=== PATIENT | male | born 1940 | race Caucasian/White ===

== ENCOUNTER 2020-06-30 19:44 | Emergency (ER) | payer MEDICARE, OTHER, SELFPAY ==
[2020-06-30 19:48] VITALS: BP 166/97; PULSE 91; RESP 20; TEMP 36.1; O2SAT 99
--- NOTE | 2020-06-30 20:06 | ED.GENADULT ---
HPI - General Adult General Chief complaint: Urogenital-Male Stated complaint: urinary retention Time Seen by Provider: 06/30/20 19:56 History of Present Illness HPI narrative: Patient is a 79-year-old gentleman presents the emergency department with chief complaint of urinary retention. Patient states that since yesterday he has been unable to urinate and states that he feels as though his bladder is distended and feels as though he has not been able to urinate. The patient reports he had a prior episode like this in the past that required Ibarra catheter. Patient states he has a urologist at [facility]. Patient denies fever denies chills denies flank pain. Related Data Allergies Allergy/AdvReac Type Severity Reaction Status Date / Time No Known Allergies Allergy Verified 06/30/20 19:49 Review of Systems Review of Systems: Narrative: A 10 system review of systems was completed on the patient and is negative except for what is stated in the HPI. Nursing and ancillary documentation was reviewed. PMFSH Comments Prior history of urinary retention I have informed the surgical history is significant for pancreatic surgery Social history the patient denies illicit drug use Exam Narrative: Exam Narrative: GENERAL: Well-appearing, well-nourished, and in no acute distress. HEAD: Normocephalic, atraumatic. EYES: PERRLA and EOMI. ENT: Nares clear, no rhinorrhea or epistaxis. Mucous membranes moist. NECK: Supple. CHEST: Clear to auscultation. No respiratory distress. HEART: Regular rate and rhythm. No murmur heard. Normal peripheral pulses. ABDOMEN: Soft, suprapubic tenderness and distended bladder, nondistended, normal active bowel sounds. EXTREMITIES: Normal range of motion. No edema. SKIN: Warm, dry, no rash. NEURO: No focal deficits. Alert and oriented x3. PSYCH: Normal mood and affect. Course Vital Signs Vital signs: Vital Signs Temperature 36.1 C L 06/30/20 19:48 Pulse Rate 91 06/30/20 19:48 Respiratory Rate 20 06/30/20 19:48 Blood Pressure 166/97 H 06/30/20 19:48 Pulse Oximetry 99 06/30/20 19:48 Temperature 36.1 C L 06/30/20 19:48 Pulse Rate 84 06/30/20 21:25 Respiratory Rate 16 06/30/20 21:25 Blood Pressure 148/86 H 02/13/21 21:25 Pulse Oximetry 98 06/30/20 21:25 Medical Decision Making Vital Signs Vital Signs: Vital Signs Temperature 36.1 C L 06/30/20 19:48 Pulse Rate 91 06/30/20 19:48 Respiratory Rate 20 06/30/20 19:48 Blood Pressure 166/97 H 06/30/20 19:48 Pulse Oximetry 99 06/30/20 19:48 Temperature 36.1 C L 06/30/20 19:48 Pulse Rate 84 06/30/20 21:25 Respiratory Rate 16 06/30/20 21:25 Blood Pressure 148/86 H 06/30/20 21:25 Pulse Oximetry 98 06/30/20 21:25 Lab Data Labs: Lab Results 06/30/20 Range/Units 20:08 Urine Color Yellow (Yellow) Urine Appearance Clear (Clear) Urine pH 6.0 (5.0-9.0) Ur Specific [place] 1.018 (1.001-1.035) Urine Protein 1+ H (Negative) mg/dL Urine Glucose (UA) Negative (Negative) mg/dL Urine Ketones Negative (Negative) mg/dL Ur Blood (Man) Negative (Negative) Urine Nitrate Negative (Negative) Urine Bilirubin Negative (Negative) Urine Urobilinogen Negative (<2.0) mg/dL Leukocyte Esterase Rfl Negative (Negative) ORA/UL Urine RBC 6-10 H (0-2) /hpf Urine WBC 0-3 /hpf Urine Bacteria Trace /hpf Urine Mucus Rare /lpf Discharge Plan Discharge Clinical Impression: Acute urinary retention Patient Disposition: Home, Self-Care Condition: Stable Instructions: Antibiotic Form, Ibarra Catheter Placement and Care (ED), How to Change a Catheter Drainage Bag (DC) Additional Instructions: please follow up with your urologist as soon as possible. Follow-up/Referrals: Jose,Luis Kumar MD [Primary Care Provider] - Time of Disposition: 20:37
[2020-06-30 20:27] LABS: Add Urine Microscopic? YES; Appearance Urine Clear (Clear); Bacteria Urine Trace /hpf; Bilirubin Urine Negative (Negative); Blood Urine Negative (Negative); Color Urine Yellow (Yellow); Glucose Urine UA Negative (Negative); Ketones Urine Negative (Negative); Leukocyte Esterase Ur Negative LEU/UL (Negative); Mucus Urine Rare /lpf; Nitrate Urine Negative (Negative); Protein Urine 1+ mg/dL (Negative); Specific Grav Ur 1.018 (1.001-1.035); Urobilinogen Urine Negative mg/dL (<2.0); WBC Urine 0-3 /hpf
[2020-06-30 21:25] VITALS: BP 148/86; PULSE 84; RESP 16; O2SAT 98
[2020-06-30] MEDS: MAGNESIUM CITRATE 300 ML BTL PO (22:01)
--- NOTE | 2020-06-30 22:02 | PC.NURSE ---
catheter teaching done in room leg bag placed on the pt
== END 2020-06-30 22:02 | disposition home or self-care (01) ==
LOC: ANHED 20:46
PROVIDERS: Emergency Provider Emergency Medicine; PCP Internal Medicine
DX: R33.9 Retention of urine, unspecified (principal)
CPT/HCPCS: 51702; 81001; 99283; A9270

== ENCOUNTER 2023-02-05 11:19 | Inpatient (IN) | payer MEDICARE, OTHER, SELFPAY ==
[2023-02-05] VITALS (22 sets, daily range): BP systolic 111–137; BP diastolic 68–98; PULSE 60–67; RESP 12–20; TEMP 36.4–36.5; O2SAT 95–100
--- NOTE | ~2023-02-05 | CT_ITS ---
EXAMINATION: CT abdomen pelvis w con DATE: 02/05/2023 16:00 INDICATION: Constipation. Abnormal liver function tests. TECHNIQUE: Computed tomography (CT) of the abdomen and pelvis was performed with 100 mL Omnipaque-350 intravenous contrast. Automated exposure control and iterative reconstruction technique were employe d. The dose-length product was 1000.14 mGy-cm. COMPARISON: None FINDINGS: Coarse septal line thickening and peripheral honeycombing at the bilateral lung bases consistent with usual interstitial pneumonia pattern chronic interstitial lung disease. Heart size is normal. Athero sclerotic coronary artery calcifications and likely coronary stenting. No pericardial or pleural effu wilton. Multiple subcentimeter low-attenuation hepatic cysts. Gallbladder and bilateral adrenal glands are normal. Status post splenectomy and distal pancreas resection. Small region of cortical scarring at the upper pole the right kidney. There are few bilateral subcentimeter renal cysts. Bilateral nono bstructing nephrolithiasis with 2 stones measuring up to 2 mm at the lower pole of the left kidney an d 1 mm stone at the upper pole of the right kidney. Bowels including the appendix are normal. Bladder is normal. Calcifications within the enlarged prostate which measures 4.5 x 3.5 cm. Tiny fat-contain ing umbilical hernia and small fat-containing right-sided paraumbilical hernia. No free intraperitone al gas or fluid. No pathologically enlarged abdominal or pelvic lymphadenopathy. There is calcified a therosclerosis of the aorta and many of the other arteries. Incidental retroaortic left renal vein. M ild thoracolumbar dextroscoliosis with severe spondylosis. Chronic appearing L2 compression fracture with 50% anterior vertebral body height loss. 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 IMPRESSION: 1. No acute intra-abdominal/pelvic process. 2. UIP pattern chronic interstitial lung disease at the bilateral lung bases. 3. Bilateral nonobstructing nephrolithiasis. 4. Prostatomegaly. 5. Tiny fat-containing umbilical and small fat-containing left paraumbilical hernias Reviewed, dictated and finalized at location A. IMPRESSION: 1. No acute intra-abdominal/pelvic process. 2. UIP pattern chronic interstitial lung disease at the bilateral lung bases. 3. Bilateral nonobstructing nephrolithiasis. 4. Prostatomegaly. 5. Tiny fat-containing umbilical and small fat-containing left paraumbilical he rnias
--- NOTE | ~2023-02-05 | XR_ITS ---
EXAMINATION: XR chest 2V DATE: 02/05/2023 14:17 INDICATION: Productive cough TECHNIQUE: AP and lateral views of the chest are obtained. COMPARISON: None available FINDINGS: There are patchy opacities of the lung bases. There appear to be subpleural reticular opaci ties. No pleural effusion or pneumothorax. The cardiomediastinal silhouette is normal. There is sever e thoracic spondylosis. Moderate osteoarthritis is noted in the shoulders. IMPRESSION: 1. Bibasilar airspace opacities which could reflect atelectasis versus pneumonia. 2. Possible chronic interstitial lung disease. Reviewed, dictated and finalized at location L. IMPRESSION: 1. Bibasilar airspace opacities which could reflect atelectasis versus pneumoni a. 2. Possible chronic interstitial lung disease.
--- NOTE | ~2023-02-05 | CT_ITS ---
EXAMINATION: CT brain wo con DATE: 02/05/2023 15:15 INDICATION: Confusion for 3 to 4 days. Disorientation. Weakness. TECHNIQUE: Computed tomography (CT) of the head was performed without intravenous contrast. The mA wa s adjusted according to patient size. Iterative reconstruction technique was employed. Exam dose: 60 5.33 mGy-cm total exam DLP. COMPARISON: None FINDINGS: Bilateral vertebral artery and basilar artery calcification and prominent bilateral carotid siphon internal carotid artery calcifications. There is nonspecific diminished attenuation of the cerebral white matter, likely due to chronic small vessel ischemic changes. There is chronic encephalomalacia in the right and to a lesser extent left lower frontal lobes which may be due to prior infarct, hematoma or injury. There is a small area of right occipital encephalomalacia which may be due to prior infarct, hematoma or injury. There is moderately prominent central and cortical cerebral and cerebellar atrophy. No intracranial mass lesion or hemorrhage. No midline shift or mass effect. No subdural or epidural h ematoma is detected. The included mastoid air cells and paranasal sinuses are well-developed and aerated. No fracture or bone destruction of the cranial vault. IMPRESSION: Bilateral frontal and right occipital chronic encephalomalacia, possibly due to prior in farcts or hematoma or trauma Cerebral atherosclerosis and chronic small vessel ischemic changes of the cerebral white matter Central and cortical cerebral and cerebellar atrophy Reviewed, dictated and finalized at [facility]. Reviewed, dictated and finalized at location A. IMPRESSION: Bilateral frontal and right occipital chronic encephalomalacia, po ssibly due to prior infarcts or hematoma or trauma Cerebral atherosclerosis and chronic small vessel ischemic changes of the cereb ral white matter Central and cortical cerebral and cerebellar atrophy
[2023-02-05 14:13] LABS: Basophils Absolute Auto 0.1 K/mm3 (0.0-0.1); Basophils Percent Auto 0.6 % (0.2-1.2); Eosinophils Absolute Auto 0.3 K/mm3 (0-0.3); Eosinophils Percent Auto 2.8 % (0-4.4); Hematocrit 37.3 % (42.0-52.0); Hemoglobin 12.8 g/dL (14.0-18.0); Immature Granulocyte Absolute 0.15 K/mm3 (0.00-0.031); Immature Granulocyte Percent A 1.6 % (0-0.5); Lymphocytes Absolute Auto 0.92 K/mm3 (0.9-3.2); Lymphocytes Percent Auto 9.8 % (18.3-44.2); Mean Corpuscular HGB Conc 34.3 g/dl (32-36); Mean Corpuscular Hemoglobin 32.7 pg (26-34); Mean Corpuscular Volume 95.2 fl (80-100); Mean Platelet Volume 9.8 fl (7.4-10.4); Monocytes Absolute Auto 1.1 K/mm3 (0.1-0.6); Monocytes Percent Auto 11.2 % (2.6-8.5); Platelet Count Result 292 k/mm3 (150-375); Red Blood Count 3.92 M/mm3 (4.6-6.20); Red Cell Distribution Width 15.3 % (11.5-14.5); White Blood Count 9.4 K/mm3 (4.5-10.0)
[2023-02-05 14:18] LABS: Appearance Urine Turbid (Clear); Bacteria Urine None Seen /hpf; Bilirubin Urine Negative (Negative); Blood Urine Negative (Negative); Color Urine Yellow (Yellow); Glucose Urine UA Negative (Negative); Ketones Urine Negative (Negative); Leukocyte Esterase Ur Trace LEU/UL (Negative); Nitrate Urine Negative (Negative); Non Pathogenic Casts 0-2; Protein Urine Negative (Negative); RBC Urine 0-2 /hpf (0-2); Specific Grav Ur 1.017 (1.001-1.035); Squamous Epithelial Cell Urine None seen /hpf (Few); Urobilinogen Urine 0.2 mg/dL (<2.0); WBC Urine 0-5 /hpf; pH Urine 7.5 (5.0-9.0)
[2023-02-05 14:19] LABS: Add Urine Microscopic? YES
[2023-02-05 14:27] LABS: Alanine Aminotransferase 113 U/L (6-50); Albumin Level 3.3 g/dL (3.5-5.1); Alkaline Phosphatase 134 U/L (38-126); Anion Gap 3 mmol/L (8-16); Aspartate Amino Transferase 81 U/L (17-59); Bilirubin,Total 0.8 mg/dL (0.2-1.3); Blood Urea Nitrogen 26 mg/dL (9-20); Carbon Dioxide 32 mmol/L (22-30); Chloride 88 mmol/L (98-107); Estimated CRCL calculation 55 ml/min; Estimated Glomerular Filt Rate > 60; Glucose 105 mg/dL (65-110); Potassium 3.7 mmol/L (3.4-5.0); Sodium 123 mmol/L (137-145)
--- NOTE | 2023-02-05 14:51 | ECG_ITS ---
Measurements Intervals [place] Rate: 62 P: DE: 0 QRS: -38 QRSD: 115 T: -3 QT: 429 QTc: 437 Interpretive Statements SINUS RHYTHM WITH FIRST DEGREE AV BLOCK LEFT AXIS DEVIATION INTRAVENTRICULAR CONDUCTION DELAY BORDERLINE R WAVE PROGRESSION, ANTERIOR LEADS BORDERLINE T WAVE ABNORMALITY- ANT/INF LEADS BORDERLINE ECG NO PREVIOUS ECG AVAILABLE FOR COMPARISON Electronically Signed On 02-05-2023 15:08:07 CDT by Reymundo Rocha D.O.
[2023-02-05 14:54] LABS: Influenza A QL RT-PCR Negative (Negative); Influenza B QL RT-PCR Negative (Negative); SARS-CoV-2 RNA PCR Negative (Negative)
[2023-02-05] MEDS: SODIUM CHLORIDE 0.9% IV 1,000 ML 999 ML IV CONT ×2 (15:17→17:17)
--- NOTE | 2023-02-05 15:53 | ED.GENADULT ---
HPI - General Adult General Chief complaint: Unspecified <Johanny Taylor PA-C - Last Filed: 02/05/23 16:57> Stated complaint: cough, forgetful <Johanny Taylor PA-C - Last Filed: 02/05/23 16:57> Time Seen by Provider: 02/05/23 13:39 <CAROLE Lackey Last Filed: 02/05/23 16:57> Source: patient and family <CAROLE Lackey Last Filed: 02/05/23 16:57> Mode of arrival: ambulatory <CAROLE Lackey Last Filed: 02/05/23 16:57> Limitations: no limitations <CAROLE Lackey Last Filed: 02/05/23 16:57> History of Present Illness HPI narrative: Patient is an 82-year-old female who presents to the ED with multiple complaints. Patient's at bedside assisted in providing information. She reports patient has been increasingly confused and forgetful over the last few days. She notes he forgot his email address which is not normal for him. Patient states he has felt weak and fatigued. He has had nausea with dry heaving with a decreased appetite. He has also had a productive cough over the last couple of days. He contacted his primary care doctor and was told to come to the ED to rule out COVID or a UTI. Patient also reports having chronic constipation. Last bowel movement 4 days ago. He denies any abdominal pain, fevers, shortness of breath, chest pain, focal weakness, slurred speech, numbness, dizziness, lightheadedness, dysuria, hematuria. <CAROLE Lackey Last Filed: 02/05/23 16:57> Related Data Home medications: Home Medications Medication Instructions Recorded Confirmed apixaban 5 mg tablet (Eliquis) 5 mg PO BID 07/28/22 02/05/23 amiodarone 200 mg tablet 200 mg PO DAILY 02/05/23 02/05/23 carvedilol 12.5 mg tablet 12.5 mg PO BID 02/05/23 02/05/23 gabapentin 100 mg capsule 100 mg PO TID 02/05/23 02/05/23 losartan 25 mg tablet 25 mg PO DAILY 02/05/23 02/05/23 metformin 500 mg tablet 500 mg PO DAILY 02/05/23 02/05/23 metolazone 2.5 mg tablet 2.5 mg PO DAILY 02/05/23 02/05/23 omeprazole 40 mg capsule,delayed 40 mg PO DAILY PRN Acid Reflux 02/05/23 02/05/23 release tamsulosin 0.4 mg capsule 0.4 mg PO DAILY 02/05/23 02/05/23 <CAROLE Lackey Last Filed: 02/05/23 16:57> Allergies/adverse reactions: Allergies Allergy/AdvReac Type Severity Reaction Status Date / Time No Known Allergies Allergy Verified 09/08/22 08:00 <Johanny Taylor PA-C - Last Filed: 02/05/23 16:57> Review of Systems Review of Systems: CONSTITUTIONAL: Denies fever, chills, or sweats. CARDIOVASCULAR: Denies chest pain, palpitations, or edema. RESPIRATORY: See HPI. GASTROINTESTINAL: See HPI. GENITOURINARY: Denies dysuria or hematuria. SKIN: Denies rash or itching. MUSCULOSKELETAL: Denies back pain, joint pain, or myalgia. NEUROLOGIC: See HPI. <Johanny Taylor PA-C - Last Filed: 02/05/23 16:57> All systems reviewed & are unremarkable except as noted in HPI and below <Johanny Taylor PA-C - Last Filed: 02/05/23 16:57> [facility] Past Medical History Medical History: Medical History (Updated 02/07/23 @ 17:33 by Johana Zayas MD) Arthritis Atrial fibrillation HTN (hypertension) <CAROLE Lackey Last Filed: 02/05/23 16:57> Family History Family History: Family History Mother Diabetes mellitus Hypertension Heart disease <CAROLE Lackey Last Filed: 02/05/23 16:57> Social History Social History: Social History Smoking status: Never smoker Alcohol intake: never Substance use: never Lack of Transportation: No Lack of Food: Never True Current Housing: I Have Housing Concerned About Future Housing: No Difficulty Paying Gas/Electric Bills: No Difficulty Paying for Meds: No Currently Unemployed: YES Education: Trade/Vocational
--- NOTE | 2023-02-05 19:49 | ADMGEN ---
This patient, Carter Bain, was admitted to 2 Medical Room 259-01. Patient/family oriented to hospital policies and general routines including ID bracelet, bed and alarms, visiting hours, pain management, procedures, bathroom and other care routines, personal items, smoking policy, room service/diet, and visiting hours. Information on how to activate the Rapid Response Team has been discussed. Patient/Family are encouraged to report perceived risks to care and to ask questions if they do not understand what they are told or what they should do.
--- NOTE | 2023-02-05 23:19 | PM.IMHP ---
H&P: HPI History of Present Illness Date/Time: 02/05/23 23:19 Chief Complaint: Patient was brought to the ER for evaluation for increased confusion, forgetfulness and wet cough for last couple days. Narrative: Our patient is a pleasantly confused 82 years old white male who lives at home with his . She reports that the he is becoming more confused and forgetful and does not remember his e-mail, which is not normal for him. He also feels weak and tired. He has some nausea and dry heave with decreased appetite. He also has productive wet cough for the last couple of days. He contacted his PCP and was told to come to the ER for evaluation. Workup was done which showed finding consistent with the possible UTI and bronchitis. He has been started on IV hydration, antibiotics and being placed under observation status for close monitoring and medical management. Review of Systems Review of Systems: patient is pleasantly confused ROS unobtainable: Yes unobtainable due to mental status PMFSH Past Medical History Medical History Arthritis Atrial fibrillation HTN (hypertension) Family History Family History Mother Diabetes mellitus Hypertension Heart disease Social History Social History Smoking status: Never smoker Alcohol intake: never Substance use: never Lack of Transportation: No Lack of Food: Never True Current Housing: I Have Housing Concerned About Future Housing: No Difficulty Paying Gas/Electric Bills: No Difficulty Paying for Meds: No Currently Unemployed: YES Education: Trade/Vocational Certificate Difficulty w/ Childcare or Family Care: No Spiritual care concerns: No Meds Home Medications and Allergies Home Medications Medication Instructions Recorded Confirmed Type apixaban 5 mg tablet (Eliquis) 5 mg PO BID 07/28/22 02/05/23 History amiodarone 200 mg tablet 200 mg PO DAILY 02/05/23 02/05/23 History carvedilol 12.5 mg tablet 12.5 mg PO BID 02/05/23 02/05/23 History gabapentin 100 mg capsule 100 mg PO TID 02/05/23 02/05/23 History losartan 25 mg tablet 25 mg PO DAILY 02/05/23 02/05/23 History metformin 500 mg tablet 500 mg PO DAILY 02/05/23 02/05/23 History metolazone 2.5 mg tablet 2.5 mg PO DAILY 02/05/23 02/05/23 History omeprazole 40 mg capsule,delayed 40 mg PO DAILY PRN Acid Reflux 02/05/23 02/05/23 History release tamsulosin 0.4 mg capsule 0.4 mg PO DAILY 02/05/23 02/05/23 History Allergies Allergy/AdvReac Type Severity Reaction Status Date / Time No Known Allergies Allergy Verified 09/08/22 08:00 Vital Signs Vital Signs - 24 hr 02/05/23 11:26 02/05/23 13:35 02/05/23 15:21 Temperature 36.5 C Pulse Rate 61 64 63 Respiratory Rate 18 20 17 Blood Pressure 136/69 137/77 128/72 Pulse Oximetry 96 99 97 Oxygen Delivery Room Air 02/05/23 13:47 02/05/23 15:00 02/05/23 15:21 Temperature Pulse Rate 63 62 63 Respiratory Rate 20 17 20 Blood Pressure 125/72 128/72 Pulse Oximetry 98 97 96 Oxygen Delivery 02/05/23 15:31 02/05/23 15:45 02/05/23 16:30 Temperature Pulse Rate 65 64 62 Respiratory Rate 20 20 19 Blood Pressure 127/77 Pulse Oximetry 96 95 98 Oxygen Delivery 02/05/23 16:58 02/05/23 17:00 02/05/23 17:24 Temperature Pulse Rate 63 63 60 Respiratory Rate 18 16 19 Blood Pressure 128/68 Pulse Oximetry 99 100 98 Oxygen Delivery 02/05/23 17:25 02/05/23 17:45 02/05/23 17:47 Temperature Pulse Rate 61 62 65 Respiratory Rate 18 20 20 Blood Pressure 111/79 Pulse Oximetry 96 97 98 Oxygen Delivery 02/05/23 18:11 02/05/23 18:15 02/05/23 18:16 Temperature Pulse Rate 64 66 67 Respiratory Rate 18 18 19 Blood Pressure 115/98 H Pulse Oximetry 98 98 Oxygen Delivery 02/05/23 18:33 02/05/23 18:45 02/05/23 18:46 Temperature Pul
[2023-02-06] MEDS: SODIUM CHLORIDE 0.9% IV 1,000 ML 75 ML IV CONT ×2 (01:14→14:45)
[2023-02-06 05:14] VITALS: BP 119/74; PULSE 64; RESP 16; TEMP 36.5; O2SAT 96
[2023-02-06 05:18] VITALS: BMI 28.8
[2023-02-06 08:08] LABS: Basophils Absolute Auto 0.1 K/mm3 (0.0-0.1); Basophils Percent Auto 0.9 % (0.2-1.2); Eosinophils Absolute Auto 0.3 K/mm3 (0-0.3); Hematocrit 37.1 % (42.0-52.0); Hemoglobin 12.6 g/dL (14.0-18.0); Immature Granulocyte Absolute 0.13 K/mm3 (0.00-0.031); Immature Granulocyte Percent A 1.4 % (0-0.5); Lymphocytes Absolute Auto 0.93 K/mm3 (0.9-3.2); Lymphocytes Percent Auto 9.9 % (18.3-44.2); Mean Corpuscular Hemoglobin 32.1 pg (26-34); Mean Corpuscular Volume 94.6 fl (80-100); Mean Platelet Volume 9.3 fl (7.4-10.4); Monocytes Absolute Auto 1.1 K/mm3 (0.1-0.6); Monocytes Percent Auto 11.9 % (2.6-8.5); Neutrophils Absolute Auto 6.8 K/mm3 (1.3-6.7); Neutrophils Percent Auto 72.9 % (45.5-73.1); Platelet Count Result 293 k/mm3 (150-375); Red Blood Count 3.92 M/mm3 (4.6-6.20); Red Cell Distribution Width 14.9 % (11.5-14.5); White Blood Count 9.4 K/mm3 (4.5-10.0)
[2023-02-06 08:23] LABS: Magnesium 1.8 mg/dL (1.6-2.3)
[2023-02-06 08:25] LABS: Anion Gap 4 mmol/L (8-16); Blood Urea Nitrogen 15 mg/dL (9-20); Calcium 7.8 mg/dL (8.4-10.2); Carbon Dioxide 27 mmol/L (22-30); Chloride 94 mmol/L (98-107); Estimated CRCL calculation 69 ml/min; Estimated Glomerular Filt Rate > 60; Glucose 99 mg/dL (65-110); Potassium 3.7 mmol/L (3.4-5.0); Sodium 125 mmol/L (137-145)
[2023-02-06 08:32] VITALS: PULSE 66
[2023-02-06] MEDS: APIXABAN 5 MG TABLET PO ×2 (08:32→20:18)
[2023-02-06] MEDS: LOSARTAN POTASSIUM 25 MG TABLET PO (08:32)
[2023-02-06] MEDS: metFORMIN HCL 500 MG TABLET PO (08:32)
[2023-02-06] MEDS: TAMSULOSIN HCL 0.4 MG CAPSULE PO (08:32)
[2023-02-06] MEDS: GABAPENTIN 100 MG CAPSULE PO ×3 (08:32→16:06)
[2023-02-06] MEDS: AMIODARONE HCL 200 MG TABLET PO (08:32)
[2023-02-06] MEDS: carvediloL 12.5 MG TABLET PO ×2 (08:32→20:18)
[2023-02-06] MEDS: metOLazone 2.5 MG TABLET PO (08:38)
--- NOTE | 2023-02-06 11:08 | PM.IMPN ---
Progress Note: A&P Assessment and Plan (1) Acute hyponatremia: Code(s): E87.1 - Hypo-osmolality and hyponatremia Status: Acute (2) Weakness: Code(s): R53.1 - Weakness Status: Acute (3) Dehydration: Code(s): E86.0 - Dehydration Status: Acute (4) Atrial fibrillation: Code(s): I48.91 - Unspecified atrial fibrillation Status: Acute (5) HTN (hypertension): Code(s): I10 - Essential (primary) hypertension Status: Acute (6) Acute bacterial bronchitis: Code(s): J20.8 - Acute bronchitis due to other specified organisms; B96.89 - Other specified bacterial agents as the cause of diseases classified elsewhere Status: Acute (7) Vocal cord nodules: Code(s): J38.2 - Nodules of vocal cords Status: Acute (8) Laryngopharyngeal reflux: Code(s): K21.9 - Gastro-esophageal reflux disease without esophagitis Status: Acute (9) Confusion: Code(s): R41.0 - Disorientation, unspecified Status: Acute (10) Altered mental status: Code(s): R41.82 - Altered mental status, unspecified Status: Acute Plan Place patient under observation status in med surge Patient was worked up in the ER for his multiple complaints Head CT scan was done which showed chronic age-related changes and ruled out any intracranial hemorrhage/ infarction Chest x-ray was done which failed to show clear-cut evidence of pneumonia UA was done which shows findings with a possible mild UTI Urine cultures sent for culture Patient is likely having mild UTI and/or bronchitis causing his symptoms of confusion Rocephin 1 g IV ordered to cover for both Patient received aggressive IV hydration in the ER Continue with IV hydration on the floor Patient's sodium level was 123 which is borderline and will be monitored closely on the floor PT/OT evaluation ordered DC planning once patient is stable and approaches his baseline ? Patient seen and examined at bedside ? Collaborated with patient's nurse at the bedside in detail and addressed all concerns ? Labs, electrolytes, radiology, investigations and test results reviewed ? ED/Consult/Nursing/Ancilliary notes on the chart reviewed and appreciated ? Spoke with patient/family at the bedside and answered all the questions that they had Continue with home meds. Monitor patient closely while admitted. Patient needs close follow up with PCP/specialists as an outpatient to address chronic medical issues. Repeat labs in a.m. Electrolyte replacement as per protocol. Patient will be monitored very closely on the floor. Further recommendations as per the hospital course. Patient's medical management will be taken over by our hospitalist team in a.m. Subjective Date/time seen: 02/06/23 11:08 Interval history: No new complaints. No neuro deficits Exam Narrative: PHYSICAL EXAMINATION: Vital signs: Please see the chart General physical exam: patient is pleasantly confused, lying in bed, appears in no acute distress Head/eyes: Atraumatic, EOMI, PERRLA ENT: + dry mucous membranes, nasal passages clear Neck: Supple, full range of motion, trachea midline CVS: S1 + S2, regular rate and rhythm, no murmurs Respiratory: Bilaterally fair air entry in both lung doll, mild B/L crackles, symmetric chest expansion, no distress Abdomen: Soft, non-tender, bowel sounds +ve, no organomegaly Extremities: No clubbing, no cyanosis, no edema, no calf tenderness Musculoskeletal: Moves all, adequate range of motion, no muscle spasms Skin: Warm, dry, no jaundice, no cyanosis Neurological: unable to be obtained, patient is pleasantly confused Psychiatric: unable to evaluate Objective Data Vital Signs Vital Signs: Vital Signs - 24 hr 02/05/23 11:26 02/05/23 13:35 02/05/23 15:21 Temperature 97.7 F Pulse Rate 61 64 63 Respiratory Rate 18 20 17 Blood Pressure 136/69 137/77 128/72 Pulse Oximetry 96 99 97 Oxygen Delivery
[2023-02-06 14:00] VITALS: BP 98/60; PULSE 65; RESP 19; TEMP 36.5; O2SAT 97
[2023-02-06] MEDS: ONDANSETRON INJ 4 MG/2 ML VIAL IV PUSH (17:01)
[2023-02-06 20:18] VITALS: PULSE 64
[2023-02-06 20:22] VITALS: BP 117/69; PULSE 66; RESP 16; TEMP 36.6; O2SAT 94
[2023-02-06 20:58] LABS: Anion Gap 4 mmol/L (8-16); Blood Urea Nitrogen 17 mg/dL (9-20); Calcium 7.7 mg/dL (8.4-10.2); Carbon Dioxide 28 mmol/L (22-30); Chloride 90 mmol/L (98-107); Estimated CRCL calculation 45 ml/min; Estimated Glomerular Filt Rate > 60; Glucose 115 mg/dL (65-110); Potassium 3.6 mmol/L (3.4-5.0); Sodium 122 mmol/L (137-145)
[2023-02-07] MEDS: SODIUM CHLORIDE 0.9% IV 1,000 ML 75 ML IV CONT (04:06)
[2023-02-07 04:45] LABS: Basophils Absolute Auto 0.1 K/mm3 (0.0-0.1); Eosinophils Absolute Auto 0.4 K/mm3 (0-0.3); Eosinophils Percent Auto 3.6 % (0-4.4); Hematocrit 33.8 % (42.0-52.0); Hemoglobin 11.9 g/dL (14.0-18.0); Immature Granulocyte Percent A 1.9 % (0-0.5); Lymphocytes Absolute Auto 1.34 K/mm3 (0.9-3.2); Lymphocytes Percent Auto 12.8 % (18.3-44.2); Mean Corpuscular HGB Conc 35.2 g/dl (32-36); Mean Corpuscular Hemoglobin 32.6 pg (26-34); Mean Corpuscular Volume 92.6 fl (80-100); Mean Platelet Volume 9.6 fl (7.4-10.4); Monocytes Absolute Auto 1.4 K/mm3 (0.1-0.6); Neutrophils Absolute Auto 7.1 K/mm3 (1.3-6.7); Neutrophils Percent Auto 67.7 % (45.5-73.1); Platelet Count Result 261 k/mm3 (150-375); Red Blood Count 3.65 M/mm3 (4.6-6.20); Red Cell Distribution Width 14.7 % (11.5-14.5); White Blood Count 10.4 K/mm3 (4.5-10.0)
[2023-02-07 05:00] LABS: Anion Gap 0 mmol/L (8-16); Blood Urea Nitrogen 16 mg/dL (9-20); Calcium 7.6 mg/dL (8.4-10.2); Carbon Dioxide 29 mmol/L (22-30); Chloride 91 mmol/L (98-107); Estimated CRCL calculation 55 ml/min; Estimated Glomerular Filt Rate > 60; Glucose 100 mg/dL (65-110); Potassium 3.3 mmol/L (3.4-5.0); Sodium 120 mmol/L (137-145)
[2023-02-07 06:00] VITALS: BP 129/67; PULSE 64; RESP 16; TEMP 36.8; O2SAT 96
[2023-02-07] MEDS: APIXABAN 5 MG TABLET PO ×2 (07:59→20:28)
[2023-02-07 08:00] VITALS: PULSE 64
[2023-02-07] MEDS: metOLazone 2.5 MG TABLET PO (08:00)
[2023-02-07] MEDS: metFORMIN HCL 500 MG TABLET PO (08:00)
[2023-02-07] MEDS: carvediloL 12.5 MG TABLET PO ×2 (08:00→20:28)
[2023-02-07] MEDS: TAMSULOSIN HCL 0.4 MG CAPSULE PO (08:00)
[2023-02-07] MEDS: AMIODARONE HCL 200 MG TABLET PO (08:00)
[2023-02-07] MEDS: GABAPENTIN 100 MG CAPSULE PO ×3 (08:00→16:42)
[2023-02-07] MEDS: LOSARTAN POTASSIUM 25 MG TABLET PO (08:00)
[2023-02-07] MEDS: POTASSIUM CHLORIDE 20 MEQ ER TABLET 40 MEQ PO (09:30)
[2023-02-07 10:41] LABS: Sodium 119 mmol/L (137-145)
[2023-02-07 11:04] LABS: Creatinine Urine 58.2 mg/dL; Sodium Urine Random 175 meq/L; Total Protein Urine Random 15 mg/dL; Ur Ttl Prot Creatinine Ratio 0.26 mg/mg (0-0.20)
[2023-02-07 11:07] LABS: Urea Random Urine 417 MG/DL
[2023-02-07 11:08] LABS: Creatinine Urine 57.6 mg/dL
--- NOTE | 2023-02-07 11:16 | PM.IMPN ---
Progress Note: A&P Assessment and Plan (1) Acute hyponatremia: Code(s): E87.1 - Hypo-osmolality and hyponatremia Status: Acute Assessment and Plan: Continue IV fluids. Hyponatremic workup pending. Nephrology consult pending. No neurologic symptoms. (2) Weakness: Code(s): R53.1 - Weakness Status: Acute Assessment and Plan: Likely from 1. 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 Status: Acute (8) Laryngopharyngeal reflux: Code(s): K21.9 - Gastro-esophageal reflux disease without esophagitis Status: Acute (9) Confusion: Code(s): R41.0 - Disorientation, unspecified Status: Acute Assessment and Plan: Improved (10) Altered mental status: Code(s): R41.82 - Altered mental status, unspecified Status: Acute Assessment and Plan: Improved Subjective Date/time seen: 02/07/23 11:16 Interval history: No new complaints Exam Narrative: PHYSICAL EXAMINATION: Vital signs: Please see the chart General physical exam: patient is pleasantly confused, lying in bed, appears in no acute distress Head/eyes: Atraumatic, EOMI, PERRLA ENT: + dry mucous membranes, nasal passages clear Neck: Supple, full range of motion, trachea midline CVS: S1 + S2, regular rate and rhythm, no murmurs Respiratory: Bilaterally fair air entry in both lung doll, mild B/L crackles, symmetric chest expansion, no distress Abdomen: Soft, non-tender, bowel sounds +ve, no organomegaly Extremities: No clubbing, no cyanosis, no edema, no calf tenderness Musculoskeletal: Moves all, adequate range of motion, no muscle spasms Skin: Warm, dry, no jaundice, no cyanosis Neurological: unable to be obtained, patient is pleasantly confused Psychiatric: unable to evaluate Objective Data Vital Signs Vital Signs: Vital Signs - 24 hr 02/06/23 14:49 02/06/23 14:00 02/06/23 20:18 Temperature 97.7 F Pulse Rate 65 64 Respiratory Rate 19 Blood Pressure 98/60 L Pulse Oximetry 97 Oxygen Delivery Room Air 02/06/23 20:22 02/06/23 20:00 02/07/23 06:00 Temperature 97.8 F 98.2 F Pulse Rate 66 64 Respiratory Rate 16 16 Blood Pressure 117/69 129/67 Pulse Oximetry 94 96 Oxygen Delivery Room Air 02/07/23 08:00 02/07/23 08:00 02/07/23 08:00 Temperature Pulse Rate 64 64 Respiratory Rate Blood Pressure Pulse Oximetry Oxygen Delivery Room Air Intake/Output Intake/Output: Intake & Output 02/04/23 02/05/23 02/06/23 02/07/23 23:59 23:59 23:59 23:59 Intake Total 2000 2400 1500 Output Total 300 2050 1150 Balance 1700 350 350 Meds/Results Medications: Active Medications Generic Name Dose Route Start Last Admin Trade Name Freq PRN Reason Stop Dose Admin Acetaminophen 650 mg 02/06/23 06:18 Acetaminophen 325 Mg Tablet PO Q4H PRN Mild Pain (1-3) or Fever Al Hydrox/Mg Hydrox/Simethicone 30 ml 02/06/23 06:18 Mag Hydrox/Al Hydrox/Simeth 30 Ml Udc PO QID PRN Dyspepsia Amiodarone HCl 200 mg 02/06/23 08:00 02/07/23 08:00 Amiodarone Hcl 200 Mg Tablet PO 200 mg DAILY@0800 DIEGO Administration Apixaban 5 mg 02/06/23 09:00 02/07/23 07:59 Apixaban 5 Mg Tablet PO 5 mg Q12HR DIEGO Administration Carvedilol
--- NOTE | 2023-02-07 13:13 | PM.CNNEP ---
Assessment and Plan Assessment and plan (1) Hyponatremia: Code(s): E87.1 - Hypo-osmolality and hyponatremia Status: Acute Assessment and Plan: acuity versus chronicity not known assuming acute risk factors of low sodium: use of thiazide (metolazone) diuretics PPI use interstitial lung disease (as noted by imaging) history of BPH follow-up on urine testing Head CT and CXR results noted check TSH, cortisol, SPEP, and UPEP stop metolazone start fluid restriction consider 3% saline if sodium continues to drop follow repeat sodium levels (2) Altered mental status: Code(s): R41.82 - Altered mental status, unspecified Status: Acute Assessment and Plan: seems clinically better secondary to #1(?) follow mentation (3) Bronchitis: Code(s): J40 - Bronchitis, not specified as acute or chronic Status: Acute Assessment and Plan: presumed based on symptoms empirically on antibiotics (4) Weakness: Code(s): R53.1 - Weakness Status: Acute Assessment and Plan: also related to #1(?) follow symptoms PT/OT as tolerated (5) HTN (hypertension): Code(s): I10 - Essential (primary) hypertension Status: Chronic Assessment and Plan: reasonable control follow trend of hemodynamics I will continue to follow the patient with you while he remains hospitalized to make further recommendations as deemed necessary. Thank you for allowing me to participate in care of this patient. History of Present Illness Reason for Consult Consult date: 02/07/23 Reason for consult: hyponatremia Chief Complaint Chief complaint: acute hyponatremia,weakness,dehydration History of Present Illness Narrative: The patient is an 82-year-old male with a past medical history as outlined below who presented to [facility] Emergency room for altered mental status. The patient's has noted and the past several days that he has become increasingly more confused and forgetful. for instance, he has been unable to remember his e-mail address and passed word which is not normal for him. Furthermore, he has had increasing issues and problems with weakness and fatigue in association with mild nausea, dry heaves, and poor oral intake. She also has noted that he has had a productive wet cough for last few days as well. Given this change in his baseline status, they contacted his primary care physician who instructed them to come to the ER for further evaluation for fear of a possible acute infection (COVID, bronchitis, UTI...etc) causing his symptoms. Workup and evaluation emergency room demonstrated the patient to be hemodynamically stable and in no acute distress. Routine blood tests were significant for hyponatremia by his chemistry but normal renal function and electrolytes. His CBC was unremarkable but his UA was somewhat suggestive of a possible urinary tract infection. His chest x-ray did not show any overt pneumonia so the suspicion with regard to his productive cough may be possible bronchitis. Given his laboratory abnormalities and constellation of symptoms that led to his presentation to the emergency room, he was started on IV fluids, antibiotics after appropriate cultures were obtained, and he was subsequent admitted to the hospital for further evaluation and therapy. Since admission, it would seem that his mentation has improved to some degree but his hyponatremia, which initially improved with IV fluids, has now started to deteriorate/worsen. Renal consultation was requested due to his hyponatremia. Unfortunately, I am unclear if his hyponatremia is acute, acute on chronic, or chronic but from my discussion with the patient, he does not recall ever being told that he had any issues or problems with hyponatremia at baseline (hence, the presumption is this is acute). With regard to risk factors for hyponatremia, he is on t
[2023-02-07 13:35] VITALS: BP 94/54; PULSE 68; RESP 16; TEMP 36.7; O2SAT 95
[2023-02-07 15:28] LABS: Sodium 119 mmol/L (137-145)
[2023-02-07] MEDS: SODIUM CHLORIDE 3% 255 ML 85 ML IV CONT (16:42)
[2023-02-07 20:00] VITALS: PULSE 100; RESP 16; O2SAT 93
[2023-02-07 21:46] LABS: Sodium 120 mmol/L (137-145)
[2023-02-07 22:00] VITALS: BP 98/65; PULSE 100; RESP 16; TEMP 36.9; O2SAT 93
[2023-02-08 05:42] VITALS: BP 116/75; PULSE 65; RESP 16; TEMP 36.5; O2SAT 96
[2023-02-08 05:53] LABS: Basophils Absolute Auto 0.1 K/mm3 (0.0-0.1); Basophils Percent Auto 0.7 % (0.2-1.2); Eosinophils Absolute Auto 0.4 K/mm3 (0-0.3); Eosinophils Percent Auto 3.5 % (0-4.4); Hematocrit 37.8 % (42.0-52.0); Immature Granulocyte Absolute 0.23 K/mm3 (0.00-0.031); Immature Granulocyte Percent A 2.2 % (0-0.5); Lymphocytes Absolute Auto 1.34 K/mm3 (0.9-3.2); Lymphocytes Percent Auto 13.1 % (18.3-44.2); Mean Corpuscular HGB Conc 34.4 g/dl (32-36); Mean Corpuscular Hemoglobin 32.3 pg (26-34); Mean Platelet Volume 9.4 fl (7.4-10.4); Monocytes Absolute Auto 1.1 K/mm3 (0.1-0.6); Monocytes Percent Auto 10.7 % (2.6-8.5); Neutrophils Absolute Auto 7.1 K/mm3 (1.3-6.7); Neutrophils Percent Auto 69.8 % (45.5-73.1); Platelet Count Result 281 k/mm3 (150-375); Red Blood Count 4.02 M/mm3 (4.6-6.20); Red Cell Distribution Width 14.6 % (11.5-14.5); White Blood Count 10.2 K/mm3 (4.5-10.0)
[2023-02-08 06:07] LABS: Alanine Aminotransferase 127 U/L (6-50); Alkaline Phosphatase 105 U/L (38-126); Anion Gap 1 mmol/L (8-16); Aspartate Amino Transferase 82 U/L (17-59); Bilirubin,Total 0.9 mg/dL (0.2-1.3); Blood Urea Nitrogen 15 mg/dL (9-20); Calcium 7.8 mg/dL (8.4-10.2); Carbon Dioxide 31 mmol/L (22-30); Chloride 88 mmol/L (98-107); Estimated CRCL calculation 55 ml/min; Estimated Glomerular Filt Rate > 60; Glucose 99 mg/dL (65-110); Potassium 3.9 mmol/L (3.4-5.0); Sodium 120 mmol/L (137-145)
[2023-02-08 06:33] LABS: Cortisol Random 8.53 ug/dL
[2023-02-08 08:29] VITALS: PULSE 68
[2023-02-08] MEDS: AMIODARONE HCL 200 MG TABLET PO (08:29)
[2023-02-08] MEDS: metFORMIN HCL 500 MG TABLET PO (08:29)
[2023-02-08] MEDS: GABAPENTIN 100 MG CAPSULE PO ×3 (08:29→16:15)
[2023-02-08] MEDS: TAMSULOSIN HCL 0.4 MG CAPSULE PO (08:29)
[2023-02-08 08:30] VITALS: PULSE 68
[2023-02-08] MEDS: LOSARTAN POTASSIUM 25 MG TABLET PO (08:30)
[2023-02-08] MEDS: carvediloL 12.5 MG TABLET PO ×2 (08:30→20:19)
[2023-02-08] MEDS: APIXABAN 5 MG TABLET PO ×2 (08:30→20:19)
--- NOTE | 2023-02-08 11:37 | PM.IMPN ---
Progress Note: A&P Assessment and Plan (1) Acute hyponatremia: Code(s): E87.1 - Hypo-osmolality and hyponatremia Status: Acute Assessment and Plan: Hyponatremic workup pending. Nephrology consult pending. No neurologic symptoms. (2) Weakness: Code(s): R53.1 - Weakness Status: Acute Assessment and Plan: Likely from 1. 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 - Nodules of vocal cords Status: Acute (8) Laryngopharyngeal reflux: Code(s): K21.9 - Gastro-esophageal reflux disease without esophagitis Status: Acute (9) Confusion: Code(s): R41.0 - Disorientation, unspecified Status: Acute Assessment and Plan: Improved (10) Altered mental status: Code(s): R41.82 - Altered mental status, unspecified Status: Acute Assessment and Plan: Improved Subjective Date/time seen: 02/08/23 11:37 Interval history: No complaints Exam Narrative: PHYSICAL EXAMINATION: Vital signs: Please see the chart General physical exam: patient is pleasantly confused, lying in bed, appears in no acute distress Head/eyes: Atraumatic, EOMI, PERRLA ENT: + dry mucous membranes, nasal passages clear Neck: Supple, full range of motion, trachea midline CVS: S1 + S2, regular rate and rhythm, no murmurs Respiratory: Bilaterally fair air entry in both lung doll, mild B/L crackles, symmetric chest expansion, no distress Abdomen: Soft, non-tender, bowel sounds +ve, no organomegaly Extremities: No clubbing, no cyanosis, no edema, no calf tenderness Musculoskeletal: Moves all, adequate range of motion, no muscle spasms Skin: Warm, dry, no jaundice, no cyanosis Neurological: unable to be obtained, patient is pleasantly confused Psychiatric: unable to evaluate Objective Data Vital Signs Vital Signs: Vital Signs - 24 hr 02/07/23 13:35 02/07/23 15:29 02/07/23 22:00 Temperature 98.1 F 98.4 F Pulse Rate 68 100 Respiratory Rate 16 16 Blood Pressure 94/54 L 98/65 L Pulse Oximetry 95 93 Oxygen Delivery Room Air 02/07/23 20:00 02/08/23 05:42 02/08/23 08:29 Temperature 97.7 F Pulse Rate 100 65 68 Respiratory Rate 16 16 Blood Pressure 116/75 Pulse Oximetry 93 96 Oxygen Delivery Room Air 02/08/23 08:30 02/08/23 08:00 Temperature Pulse Rate 68 Respiratory Rate Blood Pressure Pulse Oximetry Oxygen Delivery Room Air Intake/Output Intake/Output: Intake & Output 02/05/23 02/06/23 02/07/23 02/08/23 23:59 23:59 23:59 23:59 Intake Total 1999 2400 2090 780 Output Total 300 0 2125 1200 Balance 1700 350 -35 -420 Meds/Results Medications: Active Medications Generic Name Dose Route Start Last Admin Trade Name Freq PRN Reason Stop Dose Admin Acetaminophen 650 mg 02/06/23 06:18 Acetaminophen 325 Mg Tablet PO Q4H PRN Mild Pain (1-3) or Fever Al Hydrox/Mg Hydrox/Simethicone 30 ml 02/06/23 06:18 Mag Hydrox/Al Hydrox/Simeth 30 Ml Udc PO QID PRN Dyspepsia Amiodarone HCl 200 mg 02/06/23 08:00 02/08/23 08:29 Amiodarone Hcl 200 Mg Tablet PO 200 mg DAILY@0800 DIEGO Administration Apixaban 5 mg 02/06/23 09:00 02/08/23 08:30 Apixaban 5 Mg Tablet PO 5 mg Q12HR DIEGO Administration Carvedilol 12.5 mg 02/06/23 09:00
[2023-02-08] MEDS: COSYNTROPIN 0.25 MG/ML VIAL IV PUSH (12:00)
[2023-02-08 12:54] LABS: Sodium 120 mmol/L (137-145)
--- NOTE | 2023-02-08 12:55 | PM.PNNEP ---
Progress Note: A&P Assessment and Plan (1) Hyponatremia: Code(s): E87.1 - Hypo-osmolality and hyponatremia Status: Acute Assessment and Plan: acuity versus chronicity not known assuming acute will try to obtain old records from PCP's office risk factors of low sodium: use of thiazide (metolazone) diuretics PPI use interstitial lung disease (as noted by imaging) history of BPH evaluation to date noted: Head CT and CXR results noted TSH okay cortisol slightly low - check stim test SPEP/UPEP pending urine electrolytes are non-prerenal stopped metolazone on fluid restriction s/p 3% saline with minimal improvement started on salt tabs today -- consider adding low dose lasix follow repeat sodium levels (2) Altered mental status: Code(s): R41.82 - Altered mental status, unspecified Status: Acute Assessment and Plan: seems clinically better secondary to #1(?) follow mentation (3) Bronchitis: Code(s): J40 - Bronchitis, not specified as acute or chronic Status: Acute Assessment and Plan: presumed based on symptoms empirically on antibiotics (4) Weakness: Code(s): R53.1 - Weakness Status: Acute Assessment and Plan: also related to #1(?) follow symptoms PT/OT as tolerated (5) HTN (hypertension): Code(s): I10 - Essential (primary) hypertension Status: Chronic Assessment and Plan: reasonable control follow trend of hemodynamics Will continue to follow. Subjective Date/time seen: 02/08/23 12:55 Interval history: Follow up for acute hyponatremia (presumed). Sodium relatively stable but with no significant improvement despite fluid restriction and administration of 3% saline yesterday; started on salt tablets today; mentation seems stable if not improving; no apparent distress noted. Exam Narrative: General: elderly but WD/WN mal;ein NAD Heart: normal S1 and S2; no rub Lungs: clear to auscultation Abdomen: soft, nontender, nondistended, positive bowel sounds Extremities: no cyanosis or clubbing; no edema Skin: warm and dry Objective Data Vital Signs Vital Signs: Vital Signs Temp Pulse Resp BP Pulse Ox O2 Del Method 02/08/23 12:00 97.8 F 65 16 150/86 H 96 02/08/23 08:00 Room Air 02/08/23 08:30 68 02/08/23 08:29 68 02/08/23 05:42 97.7 F 65 16 116/75 96 02/07/23 20:00 100 16 93 Room Air 02/07/23 22:00 98.4 F 100 16 98/65 L 93 02/07/23 15:29 Room Air Intake/Output Intake/Output: Intake & Output 02/05/23 02/06/23 02/07/23 02/08/23 23:59 23:59 23:59 23:59 Intake Total 19990 0 1020 Output Total 300 0 2125 1200 Balance 1700 350 -35 -180 Meds/Results Medications: Active Medications Generic Name Dose Route Start Last Admin Trade Name Freq PRN Reason Stop Dose Admin Acetaminophen 650 mg 02/06/23 06:18 Acetaminophen 325 Mg Tablet PO Q4H PRN Mild Pain (1-3) or Fever Al Hydrox/Mg Hydrox/Simethicone 30 ml 02/06/23 06:18 Mag Hydrox/Al Hydrox/Simeth 30 Ml Udc PO QID PRN Dyspepsia Amiodarone HCl 200 mg 02/06/23 08:00 02/08/23 08:29 Amiodarone Hcl 200 Mg Tablet PO 200 mg DAILY@0800 DIEGO Administration Apixaban 5 mg 02/06/23 09:00 02/08/23 08:30 Apixaban 5 Mg Tablet PO 5 mg Q12HR DIEGO Administration Carvedilol 12.5 mg 02/06/23 09:00 02/08/23 08:30 Carvedilol 12.5 Mg Tablet PO 12.5 mg Q12HR DIEGO Administration Gabapentin 100 mg 02/06/23 09:00 02/08/23 12:04 Gabapentin 100 Mg Capsule PO 100 mg TID DIEGO Administration Ceftriaxone Sodium 1 gm in 50 mls @ 100 mls/hr 02/06/23 06:00 02/08/23 06:26 Rocephin 1 Gm/Ns 50 Ml IVPB 100 mls/hr Q24H DIEGO Administration Losartan Potassium 25 mg 02/06/23 09:00 02/08/23 08:30 Losartan Potassium 25 Mg Tablet PO 25 mg DAILY DIEGO Administration
--- NOTE | 2023-02-08 12:55 | P.PNNP_ITS ---
Progress Note: A&P Assessment and Plan (1) Hyponatremia: Code(s): E87.1 - Hypo-osmolality and hyponatremia Status: Acute Assessment and Plan: * acuity versus chronicity not known * assuming acute * will try to obtain old records from PCP's office * risk factors of low sodium: * use of thiazide (metolazone) diuretics * PPI use * interstitial lung disease (as noted by imaging) * history of BPH * evaluation to date noted: * Head CT and CXR results noted * TSH okay * cortisol slightly low - check stim test * SPEP/UPEP pending * urine electrolytes are non-prerenal * stopped metolazone * on fluid restriction * s/p 3% saline with minimal improvement * started on salt tabs today -- consider adding low dose lasix * follow repeat sodium levels (2) Altered mental status: Code(s): R41.82 - Altered mental status, unspecified Status: Acute Assessment and Plan: * seems clinically better * secondary to #1(?) * follow mentation (3) Bronchitis: Code(s): J40 - Bronchitis, not specified as acute or chronic Status: Acute Assessment and Plan: * presumed based on symptoms * empirically on antibiotics (4) Weakness: Code(s): R53.1 - Weakness Status: Acute Assessment and Plan: * also related to #1(?) * follow symptoms * PT/OT as tolerated (5) HTN (hypertension): Code(s): I10 - Essential (primary) hypertension Status: Chronic Assessment and Plan: * reasonable control * follow trend of hemodynamics Will continue to follow. Subjective Date/time seen: 02/08/23 12:55 Interval history: Follow up for acute hyponatremia (presumed). Sodium relatively stable but with no significant improvement despite fluid restriction and administration of 3% saline yesterday; started on salt tablets today; mentation seems stable if not improving; no apparent distress noted. Exam Narrative: General: elderly but WD/WN mal;ein NAD Heart: normal S1 and S2; no rub Lungs: clear to auscultation Abdomen: soft, nontender, nondistended, positive bowel sounds Extremities: no cyanosis or clubbing; no edema Skin: warm and dry Objective Data Vital Signs Vital Signs: Vital Signs Temp Pulse Resp BP Pulse Ox O2 Del Method 02/08/23 12:00 97.8 F 65 16 150/86 H 96 02/08/23 08:00 Room Air 02/08/23 08:30 68 02/08/23 08:29 68 02/08/23 05:42 97.7 F 65 16 116/75 96 02/07/23 20:00 100 16 93 Room Air 02/07/23 22:00 98.4 F 100 16 98/65 L 93 02/07/23 15:29 Room Air Intake/Output Intake/Output: Intake & Output 02/05/23 02/06/23 02/07/23 02/08/23 23:59 23:59 23:59 23:59 Intake Total 1999 2400 2090 1020 Output Total 300 0 2125 1200 Balance 1700 350 -35 -180 Meds/Results Medications: Active Medications Generic Name Dose Route Start Last Admin Trade Name Freq PRN Reason Stop Dose Admin Acetaminophen 650 mg 02/06/23 06:18 Acetaminophen 325 Mg Tablet PO Q4H PRN
[2023-02-08] MEDS: SODIUM CHLORIDE 1 GM TABLET PO ×3 (13:00→20:19)
[2023-02-08 14:00] VITALS: BP 150/86; PULSE 65; RESP 16; TEMP 36.6; O2SAT 96
[2023-02-08 19:20] LABS: Sodium 119 mmol/L (137-145)
[2023-02-08 20:00] VITALS: PULSE 65; RESP 16; O2SAT 96
[2023-02-08] MEDS: FUROSEMIDE 10 MG TABLET PO (20:19)
[2023-02-08 22:00] VITALS: BP 109/67; PULSE 65; RESP 18; TEMP 37.2; O2SAT 96
[2023-02-09] VITALS (7 sets, daily range): BP systolic 91–120; BP diastolic 56–80; PULSE 64–72; RESP 14–18; TEMP 36.6; O2SAT 92–98
[2023-02-09 07:13] LABS: Albumin Level 3.1 g/dL (3.5-5.1); Anion Gap 3 mmol/L (8-16); Blood Urea Nitrogen 17 mg/dL (9-20); Calcium 8.2 mg/dL (8.4-10.2); Carbon Dioxide 33 mmol/L (22-30); Chloride 87 mmol/L (98-107); Estimated CRCL calculation 55 ml/min; Estimated Glomerular Filt Rate > 60; Glucose 104 mg/dL (65-110); Phosphorus 3.3 mg/dL (2.5-4.5); Potassium 3.7 mmol/L (3.4-5.0); Sodium 123 mmol/L (137-145)
[2023-02-09] MEDS: APIXABAN 5 MG TABLET PO ×2 (09:04→21:05)
[2023-02-09] MEDS: TAMSULOSIN HCL 0.4 MG CAPSULE PO (09:04)
[2023-02-09] MEDS: GABAPENTIN 100 MG CAPSULE PO ×3 (09:04→17:57)
[2023-02-09] MEDS: metFORMIN HCL 500 MG TABLET PO (09:04)
[2023-02-09] MEDS: AMIODARONE HCL 200 MG TABLET PO (09:04)
[2023-02-09] MEDS: SODIUM CHLORIDE 1 GM TABLET PO ×2 (09:04→17:57)
[2023-02-09] MEDS: LOSARTAN POTASSIUM 25 MG TABLET PO (09:05)
--- NOTE | 2023-02-09 10:30 | PM.PNNEP ---
Progress Note: A&P Assessment and Plan (1) Hyponatremia: Code(s): E87.1 - Hypo-osmolality and hyponatremia Status: Acute Assessment and Plan: acuity versus chronicity not known assuming acute will try to obtain old records from PCP's office risk factors of low sodium: use of thiazide (metolazone) diuretics PPI use interstitial lung disease (as noted by imaging) history of BPH evaluation to date noted: Head CT and CXR results noted TSH okay cortisol slightly low - however, stim test okay SPEP/UPEP pending urine electrolytes are non-prerenal stopped metolazone on fluid restriction s/p 3% saline with minimal improvement on salt tabs and added low dose lasix today follow repeat sodium levels (2) Altered mental status: Code(s): R41.82 - Altered mental status, unspecified Status: Acute Assessment and Plan: seems clinically better secondary to #1(?) follow mentation (3) Bronchitis: Code(s): J40 - Bronchitis, not specified as acute or chronic Status: Acute Assessment and Plan: presumed based on symptoms empirically on antibiotics (4) Weakness: Code(s): R53.1 - Weakness Status: Acute Assessment and Plan: also related to #1(?) follow symptoms PT/OT as tolerated (5) HTN (hypertension): Code(s): I10 - Essential (primary) hypertension Status: Chronic Assessment and Plan: reasonable control follow trend of hemodynamics Will continue to follow. Subjective Date/time seen: 02/09/23 10:30 Interval history: Follow up for acute hyponatremia (presumed). Sodium slowing improving with current interventions/therapy (fluid restriction, salt tabletes, and diuretics); mentation seems better if not stable; family at bedside and we discussed the situation; no apparent distress noted; no other events/issues overnight or earlier this morning. Exam Narrative: General: elderly but WD/WN mal;ein NAD Heart: normal S1 and S2; no rub Lungs: clear to auscultation Abdomen: soft, nontender, nondistended, positive bowel sounds Extremities: no cyanosis or clubbing; no edema Skin: warm and intact Objective Data Vital Signs Vital Signs: Vital Signs Temp Pulse Resp BP Pulse Ox O2 Del Method 02/09/23 09:04 65 02/09/23 08:59 72 14 98/61 L 92 02/09/23 06:00 97.9 F 64 18 110/64 96 02/08/23 22:00 98.9 F 65 18 109/67 96 02/08/23 20:00 65 16 96 Room Air 02/08/23 14:00 97.8 F 65 16 150/86 H 96 Intake/Output Intake/Output: Intake & Output 02/06/23 02/07/23 02/08/23 02/09/23 23:59 23:59 23:59 23:59 Intake Total 2400 2090 1850 620 Output Total 2050 2125 1200 800 Balance 350 -35 650 -180 Meds/Results Medications: Active Medications Generic Name Dose Route Start Last Admin Trade Name Freq PRN Reason Stop Dose Admin Acetaminophen 650 mg 02/06/23 06:18 Acetaminophen 325 Mg Tablet PO Q4H PRN Mild Pain (1-3) or Fever Al Hydrox/Mg Hydrox/Simethicone 30 ml 02/06/23 06:18 Mag Hydrox/Al Hydrox/Simeth 30 Ml Udc PO QID PRN Dyspepsia Amiodarone HCl 200 mg 02/06/23 08:00 02/09/23 09:04 Amiodarone Hcl 200 Mg Tablet PO 200 mg DAILY@0800 DIEGO Administration Apixaban 5 mg 02/06/23 09:00 02/09/23 09:04 Apixaban 5 Mg Tablet PO 5 mg Q12HR DIEGO Administration Carvedilol 12.5 mg 02/06/23 09:00 02/09/23 09:05 Carvedilol 12.5 Mg Tablet PO Not Given Q12HR DIEGO Furosemide 10 mg 02/09/23 17:00 Furosemide 10 Mg Tablet PO BID DIEGO Gabapentin 100 mg 02/06/23 09:00 02/09/23 09:04 Gabapentin 100 Mg Capsule PO 100 mg TID DIEGO Administration Ceftriaxone Sodium 1 gm in 50 mls @ 100 mls/hr 02/06/23 06:00 02/09/23 05:53 Rocephin 1 Gm/Ns 50 Ml IVPB 100 mls/hr Q24H DIEGO Administration Losartan Potassium 25 mg 02/06/23 09:00 02/09/23 09:05 Losartan
--- NOTE | 2023-02-09 10:30 | P.PNNP_ITS ---
Progress Note: A&P Assessment and Plan (1) Hyponatremia: Code(s): E87.1 - Hypo-osmolality and hyponatremia Status: Acute Assessment and Plan: * acuity versus chronicity not known * assuming acute * will try to obtain old records from PCP's office * risk factors of low sodium: * use of thiazide (metolazone) diuretics * PPI use * interstitial lung disease (as noted by imaging) * history of BPH * evaluation to date noted: * Head CT and CXR results noted * TSH okay * cortisol slightly low - however, stim test okay * SPEP/UPEP pending * urine electrolytes are non-prerenal * stopped metolazone * on fluid restriction * s/p 3% saline with minimal improvement * on salt tabs and added low dose lasix today * follow repeat sodium levels (2) Altered mental status: Code(s): R41.82 - Altered mental status, unspecified Status: Acute Assessment and Plan: * seems clinically better * secondary to #1(?) * follow mentation (3) Bronchitis: Code(s): J40 - Bronchitis, not specified as acute or chronic Status: Acute Assessment and Plan: * presumed based on symptoms * empirically on antibiotics (4) Weakness: Code(s): R53.1 - Weakness Status: Acute Assessment and Plan: * also related to #1(?) * follow symptoms * PT/OT as tolerated (5) HTN (hypertension): Code(s): I10 - Essential (primary) hypertension Status: Chronic Assessment and Plan: * reasonable control * follow trend of hemodynamics Will continue to follow. Subjective Date/time seen: 02/09/23 10:30 Interval history: Follow up for acute hyponatremia (presumed). Sodium slowing improving with current interventions/therapy (fluid restriction, salt tabletes, and diuretics); mentation seems better if not stable; family at bedside and we discussed the situation; no apparent distress noted; no other events/issues overnight or earlier this morning. Exam Narrative: General: elderly but WD/WN mal;ein NAD Heart: normal S1 and S2; no rub Lungs: clear to auscultation Abdomen: soft, nontender, nondistended, positive bowel sounds Extremities: no cyanosis or clubbing; no edema Skin: warm and intact Objective Data Vital Signs Vital Signs: Vital Signs Temp Pulse Resp BP Pulse Ox O2 Del Method 02/09/23 09:04 65 02/09/23 08:59 72 14 98/61 L 92 02/09/23 06:00 97.9 F 64 18 110/64 96 02/08/23 22:00 98.9 F 65 18 109/67 96 02/08/23 20:00 65 16 96 Room Air 02/08/23 14:00 97.8 F 65 16 150/86 H 96 Intake/Output Intake/Output: Intake & Output 02/06/23 02/07/23 02/08/23 02/09/23 23:59 23:59 23:59 23:59 Intake Total 2400 2090 1850 620 Output Total 2049 2124 1200 800 Balance 350 -35 650 -180 Meds/Results Medications: Active Medications Generic Name Dose Route Start Last Admin Trade Name Freq PRN Reason Stop Dose Admin Acetaminophen 650 mg 02/06/23 06:18 Acetaminophen 325 Mg Tablet PO Q4H PRN Mild Pain (1-3) or Fe
--- NOTE | 2023-02-09 12:00 | PM.IMPN ---
Progress Note: A&P Assessment and Plan (1) Acute hyponatremia: Code(s): E87.1 - Hypo-osmolality and hyponatremia Status: Acute Assessment and Plan: Hyponatremic workup pending. Nephrology consult pending. No neurologic symptoms. (2) Weakness: Code(s): R53.1 - Weakness Status: Acute Assessment and Plan: Likely from 1. 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 - Nodules of vocal cords Status: Acute (8) Laryngopharyngeal reflux: Code(s): K21.9 - Gastro-esophageal reflux disease without esophagitis Status: Acute (9) Confusion: Code(s): R41.0 - Disorientation, unspecified Status: Acute Assessment and Plan: Improved (10) Altered mental status: Code(s): R41.82 - Altered mental status, unspecified Status: Acute Assessment and Plan: Improved Subjective Date/time seen: 02/09/23 12:00 Interval history: no new issues Na noted Exam Narrative: PHYSICAL EXAMINATION: Vital signs: Please see the chart General physical exam: patient is pleasantly confused, lying in bed, appears in no acute distress Head/eyes: Atraumatic, EOMI, PERRLA ENT: + dry mucous membranes, nasal passages clear Neck: Supple, full range of motion, trachea midline CVS: S1 + S2, regular rate and rhythm, no murmurs Respiratory: Bilaterally fair air entry in both lung doll, mild B/L crackles, symmetric chest expansion, no distress Abdomen: Soft, non-tender, bowel sounds +ve, no organomegaly Extremities: No clubbing, no cyanosis, no edema, no calf tenderness Musculoskeletal: Moves all, adequate range of motion, no muscle spasms Skin: Warm, dry, no jaundice, no cyanosis Neurological: unable to be obtained, patient is pleasantly confused Psychiatric: unable to evaluate Objective Data Vital Signs Vital Signs: Vital Signs - 24 hr 02/08/23 14:00 02/08/23 20:00 02/08/23 22:00 Temperature 97.8 F 98.9 F Pulse Rate 65 65 65 Respiratory Rate 16 16 18 Blood Pressure 150/86 H 109/67 Pulse Oximetry 96 96 96 Oxygen Delivery Room Air 02/09/23 06:00 02/09/23 08:59 02/09/23 09:04 Temperature 97.9 F Pulse Rate 64 72 65 Respiratory Rate 18 14 Blood Pressure 110/64 98/61 L Pulse Oximetry 96 92 Oxygen Delivery 02/09/23 09:00 Temperature Pulse Rate Respiratory Rate Blood Pressure Pulse Oximetry Oxygen Delivery Room Air Intake/Output Intake/Output: Intake & Output 02/06/23 02/07/23 02/08/23 02/09/23 23:59 23:59 23:59 23:59 Intake Total 2400 2090 1850 620 Output Total 2050 2125 1200 800 Balance 350 -35 650 -180 Meds/Results Medications: Active Medications Generic Name Dose Route Start Last Admin Trade Name Freq PRN Reason Stop Dose Admin Acetaminophen 650 mg 02/06/23 06:18 Acetaminophen 325 Mg Tablet PO Q4H PRN Mild Pain (1-3) or Fever Al Hydrox/Mg Hydrox/Simethicone 30 ml 02/06/23 06:18 Mag Hydrox/Al Hydrox/Simeth 30 Ml Udc PO QID PRN Dyspepsia Amiodarone HCl 200 mg 02/06/23 08:00 02/09/23 09:04 Amiodarone Hcl 200 Mg Tablet PO 200 mg DAILY@0800 DIEGO Administration Apixaban 5 mg 02/06/23 09:00 02/09/23 09:04 Apixaban 5 Mg Tablet PO 5 mg Q12HR DIEGO Administration Carvedilol 12.5 mg 02/06/23 09:00 02/09/23 0
[2023-02-09 14:19] LABS: Sodium 122 mmol/L (137-145)
[2023-02-09 17:29] LABS: Sodium 122 mmol/L (137-145)
[2023-02-09] MEDS: AZITHROMYCIN 250 MG TABLET 500 MG PO (17:57)
[2023-02-09] MEDS: FUROSEMIDE 10 MG TABLET PO (17:57)
[2023-02-09] MEDS: carvediloL 12.5 MG TABLET PO (21:04)
[2023-02-09 23:09] LABS: Sodium 122 mmol/L (137-145)
[2023-02-10 05:33] VITALS: BP 110/50; PULSE 66; RESP 17; TEMP 36.6; O2SAT 96
[2023-02-10 06:17] LABS: Basophils Absolute Auto 0.1 K/mm3 (0.0-0.1); Basophils Percent Auto 0.9 % (0.2-1.2); Eosinophils Absolute Auto 0.4 K/mm3 (0-0.3); Eosinophils Percent Auto 3.3 % (0-4.4); Hematocrit 34.9 % (42.0-52.0); Hemoglobin 12.2 g/dL (14.0-18.0); Immature Granulocyte Absolute 0.39 K/mm3 (0.00-0.031); Immature Granulocyte Percent A 3.4 % (0-0.5); Lymphocytes Absolute Auto 1.45 K/mm3 (0.9-3.2); Lymphocytes Percent Auto 12.5 % (18.3-44.2); Mean Corpuscular Hemoglobin 32.6 pg (26-34); Mean Corpuscular Volume 93.3 fl (80-100); Mean Platelet Volume 9.9 fl (7.4-10.4); Monocytes Absolute Auto 1.3 K/mm3 (0.1-0.6); Monocytes Percent Auto 10.9 % (2.6-8.5); Platelet Count Result 285 k/mm3 (150-375); Red Blood Count 3.74 M/mm3 (4.6-6.20); Red Cell Distribution Width 14.9 % (11.5-14.5); White Blood Count 11.6 K/mm3 (4.5-10.0)
[2023-02-10 06:36] LABS: Anion Gap 2 mmol/L (8-16); Blood Urea Nitrogen 24 mg/dL (9-20); Calcium 7.7 mg/dL (8.4-10.2); Carbon Dioxide 29 mmol/L (22-30); Chloride 91 mmol/L (98-107); Estimated CRCL calculation 49 ml/min; Estimated Glomerular Filt Rate > 60; Glucose 92 mg/dL (65-110); Potassium 3.2 mmol/L (3.4-5.0); Sodium 122 mmol/L (137-145)
[2023-02-10] MEDS: SODIUM CHLORIDE 500 MG TABLET 1500 MG PO ×2 (08:42→17:28)
[2023-02-10] MEDS: TAMSULOSIN HCL 0.4 MG CAPSULE PO (08:42)
[2023-02-10] MEDS: LOSARTAN POTASSIUM 25 MG TABLET PO (08:42)
[2023-02-10] MEDS: polyethylene glycoL 3350 17 GM POWD.PACK PO (08:42)
[2023-02-10] MEDS: APIXABAN 5 MG TABLET PO ×2 (08:43→20:41)
[2023-02-10] MEDS: GABAPENTIN 100 MG CAPSULE PO ×3 (08:43→17:29)
[2023-02-10] MEDS: metFORMIN HCL 500 MG TABLET PO (08:43)
[2023-02-10 08:52] VITALS: BP 100/60; PULSE 70; RESP 14; O2SAT 96
--- NOTE | 2023-02-10 10:10 | P.PNNP_ITS ---
Progress Note: A&P Assessment and Plan (1) Hyponatremia: Code(s): E87.1 - Hypo-osmolality and hyponatremia Status: Acute Assessment and Plan: * acuity versus chronicity not known * assuming acute * will try to obtain old records from PCP's office * risk factors of low sodium: * use of thiazide (metolazone) diuretics * PPI use * interstitial lung disease (as noted by imaging) * history of BPH * evaluation to date noted: * Head CT and CXR results noted * TSH okay * cortisol slightly low - however, stim test okay * SPEP/UPEP pending * urine electrolytes are non-prerenal * stopped metolazone * on fluid restriction * s/p 3% saline x 1 with minimal improvement -- may consider rechallenge * on salt tab and low dose lasix * follow repeat sodium levels (2) Altered mental status: Code(s): R41.82 - Altered mental status, unspecified Status: Acute Assessment and Plan: * seems clinically better * secondary to #1(?) * follow mentation (3) Bronchitis: Code(s): J40 - Bronchitis, not specified as acute or chronic Status: Acute Assessment and Plan: * presumed based on symptoms * empirically on antibiotics (4) Weakness: Code(s): R53.1 - Weakness Status: Acute Assessment and Plan: * also related to #1(?) * follow symptoms * PT/OT as tolerated (5) HTN (hypertension): Code(s): I10 - Essential (primary) hypertension Status: Chronic Assessment and Plan: * reasonable control * follow trend of hemodynamics Will continue to follow. Subjective Date/time seen: 02/10/23 10:10 Interval history: Follow up for acute hyponatremia (presumed). Sodium seems to be stuck at 122 for the last 24 hours -- sodium tablets increased today and already on low dose lasix; fluid restriction adjusted to 1500cc/24hr currently; no apparent distress noted at the time of my visit. Exam Narrative: General: elderly but WD/WN mal;ein NAD Heart: normal S1 and S2; no rub Lungs: clear to auscultation Abdomen: soft, nontender, nondistended, positive bowel sounds Extremities: no cyanosis or clubbing; no edema Skin: warm and intact Objective Data Vital Signs Vital Signs: Vital Signs Temp Pulse Resp BP Pulse Ox O2 Del Method 02/10/23 08:45 Room Air 02/10/23 08:52 70 14 100/60 96 02/10/23 05:33 97.9 F 66 17 110/50 L 96 02/09/23 21:04 66 02/09/23 20:22 97.9 F 71 18 110/60 94 02/09/23 17:56 120/80 02/09/23 14:00 97.8 F 65 17 91/56 L 98 Intake/Output Intake/Output: Intake & Output 02/07/23 02/08/23 02/09/23 02/10/23 23:59 23:59 23:59 23:59 Intake Total 2090 1850 880 240 Output Total 2125 1200 1300 200 Balance -35 650 -420 40 Meds/Results Medications: Active Medications Generic Name Dose Route Start Last Admin Trade Name Freq PRN Reason Stop Dose Admin Acetaminophen 650 mg 02/06/23 06:18 Acetaminophen 325 Mg Tablet PO Q4H PRN Mild Pain (1-3) or Fever
--- NOTE | 2023-02-10 10:10 | PM.PNNEP ---
Progress Note: A&P Assessment and Plan (1) Hyponatremia: Code(s): E87.1 - Hypo-osmolality and hyponatremia Status: Acute Assessment and Plan: acuity versus chronicity not known assuming acute will try to obtain old records from PCP's office risk factors of low sodium: use of thiazide (metolazone) diuretics PPI use interstitial lung disease (as noted by imaging) history of BPH evaluation to date noted: Head CT and CXR results noted TSH okay cortisol slightly low - however, stim test okay SPEP/UPEP pending urine electrolytes are non-prerenal stopped metolazone on fluid restriction s/p 3% saline x 1 with minimal improvement -- may consider rechallenge on salt tab and low dose lasix follow repeat sodium levels (2) Altered mental status: Code(s): R41.82 - Altered mental status, unspecified Status: Acute Assessment and Plan: seems clinically better secondary to #1(?) follow mentation (3) Bronchitis: Code(s): J40 - Bronchitis, not specified as acute or chronic Status: Acute Assessment and Plan: presumed based on symptoms empirically on antibiotics (4) Weakness: Code(s): R53.1 - Weakness Status: Acute Assessment and Plan: also related to #1(?) follow symptoms PT/OT as tolerated (5) HTN (hypertension): Code(s): I10 - Essential (primary) hypertension Status: Chronic Assessment and Plan: reasonable control follow trend of hemodynamics Will continue to follow. Subjective Date/time seen: 02/10/23 10:10 Interval history: Follow up for acute hyponatremia (presumed). Sodium seems to be stuck at 122 for the last 24 hours -- sodium tablets increased today and already on low dose lasix; fluid restriction adjusted to 1500cc/24hr currently; no apparent distress noted at the time of my visit. Exam Narrative: General: elderly but WD/WN mal;ein NAD Heart: normal S1 and S2; no rub Lungs: clear to auscultation Abdomen: soft, nontender, nondistended, positive bowel sounds Extremities: no cyanosis or clubbing; no edema Skin: warm and intact Objective Data Vital Signs Vital Signs: Vital Signs Temp Pulse Resp BP Pulse Ox O2 Del Method 02/10/23 08:45 Room Air 02/10/23 08:52 70 14 100/60 96 02/10/23 05:33 97.9 F 66 17 110/50 L 96 02/09/23 21:04 66 02/09/23 20:22 97.9 F 71 18 110/60 94 02/09/23 17:56 120/80 02/09/23 14:00 97.8 F 65 17 91/56 L 98 Intake/Output Intake/Output: Intake & Output 02/07/23 02/08/23 02/09/23 02/10/23 23:59 23:59 23:59 23:59 Intake Total 2090 1850 880 240 Output Total 2125 1200 1300 200 Balance -35 650 -420 40 Meds/Results Medications: Active Medications Generic Name Dose Route Start Last Admin Trade Name Freq PRN Reason Stop Dose Admin Acetaminophen 650 mg 02/06/23 06:18 Acetaminophen 325 Mg Tablet PO Q4H PRN Mild Pain (1-3) or Fever Al Hydrox/Mg Hydrox/Simethicone 30 ml 02/06/23 06:18 Mag Hydrox/Al Hydrox/Simeth 30 Ml Udc PO QID PRN Dyspepsia Amiodarone HCl 200 mg 02/06/23 08:00 02/09/23 09:04 Amiodarone Hcl 200 Mg Tablet PO 200 mg DAILY@0800 DIEGO Administration Apixaban 5 mg 02/06/23 09:00 02/10/23 08:43 Apixaban 5 Mg Tablet PO 5 mg Q12HR DIEGO Administration Azithromycin 500 mg 02/09/23 17:00 02/09/23 17:57 Azithromycin 250 Mg Tablet PO 02/11/23 17:01 500 mg DAILY@1700 DIEGO Administration Carvedilol 12.5 mg 02/06/23 09:00 02/09/23 21:04 Carvedilol 12.5 Mg Tablet PO 12.5 mg Q12HR DIEGO Administration Furosemide 10 mg 02/09/23 17:00 02/09/23 17:57 Furosemide 10 Mg Tablet PO 10 mg BID DIEGO Administration Gabapentin 100 mg 02/06/23 09:00 02/10/23 08:43 Gabapentin 100 Mg Capsule PO 100 mg TID DIEGO Administration Losartan Potassium 25 mg 02/06/23 09:00 02/10/23
--- NOTE | 2023-02-10 10:41 | PM.IMPN ---
Progress Note: A&P Assessment and Plan (1) Acute hyponatremia: Code(s): E87.1 - Hypo-osmolality and hyponatremia Status: Acute Assessment and Plan: Hyponatremic workup in progress Nephrology consult pending. No neurologic symptoms. Sodium chloride tablets initiated, no significant change in sodium level in the last 24hours. (2) Weakness: Code(s): R53.1 - Weakness Status: Acute Assessment and Plan: Improving (3) Dehydration: Code(s): E86.0 - Dehydration Status: Acute Assessment and Plan: IV fluids (4) Atrial fibrillation: Code(s): I48.91 - Unspecified atrial fibrillation Status: Acute Assessment and Plan: Monitor (5) HTN (hypertension): Code(s): I10 - Essential (primary) hypertension Status: Chronic Assessment and Plan: Monitor (6) Acute bacterial bronchitis: Code(s): J20.8 - Acute bronchitis due to other specified organisms; B96.89 - Other specified bacterial agents as the cause of diseases classified elsewhere Status: Acute Assessment and Plan: Azithromycin, improved (7) 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 No neurologic issues. Exam Narrative: PHYSICAL EXAMINATION: Vital signs: Please see the chart General physical exam: patient is pleasantly confused, lying in bed, appears in no acute distress Head/eyes: Atraumatic, EOMI, PERRLA ENT: + dry mucous membranes, nasal passages clear Neck: Supple, full range of motion, trachea midline CVS: S1 + S2, regular rate and rhythm, no murmurs Respiratory: Bilaterally fair air entry in both lung doll, mild B/L crackles, symmetric chest expansion, no distress Abdomen: Soft, non-tender, bowel sounds +ve, no organomegaly Extremities: No clubbing, no cyanosis, no edema, no calf tenderness Musculoskeletal: Moves all, adequate range of motion, no muscle spasms Skin: Warm, dry, no jaundice, no cyanosis Neurological: unable to be obtained, patient is pleasantly confused Psychiatric: unable to evaluate Objective Data Vital Signs Vital Signs: Vital Signs - 24 hr 02/09/23 14:00 02/09/23 17:56 02/09/23 20:22 Temperature 97.8 F 97.9 F Pulse Rate 65 71 Respiratory Rate 17 18 Blood Pressure 91/56 L 120/80 110/60 Pulse Oximetry 98 94 02/09/23 21:04 02/10/23 05:33 02/10/23 08:52 Temperature 97.9 F Pulse Rate 66 66 70 Respiratory Rate 17 14 Blood Pressure 110/50 L 100/60 Pulse Oximetry 96 96 Intake/Output Intake/Output: Intake & Output 02/07/23 02/08/23 02/09/23 02/10/23 23:59 23:59 23:59 23:59 Intake Total 2090 1850 880 240 Output Total 2125 1200 1300 200 Balance -35 650 -420 40 Meds/Results Medications: Active Medications Generic Name Dose Route Start Last Admin Trade Name Freq PRN Reason Stop Dose Admin Acetaminophen 650 mg 02/06/23 06:18 Acetaminophen 325 Mg Tablet PO Q4H PRN Mild Pain (1-3) or Fever Al Hydrox/Mg Hydrox/Simethicone 30 ml 02/06/23 06:18 Mag Hydrox/Al Hydrox/Simeth 30 Ml Udc PO QID PRN Dyspepsia Amiodarone HCl 200 mg 02/06/23 08:00 02/09/23 09:04 Amiodarone Hcl 200 Mg Tablet PO 200 mg DAILY@0800 DIEGO Administration Apixaban 5 mg 02/06/23 09:00 02/10/23 08:43 Apixaban 5 Mg Tablet PO 5 mg Q12HR DIEGO Administration Azithromycin 500 mg 02/09/23 17:00 02/09/23 17:57 Azithromycin 250 Mg Tablet PO 02/11/23 17:0
[2023-02-10 12:04] VITALS: PULSE 72
[2023-02-10 12:48] LABS: Sodium 125 mmol/L (137-145)
[2023-02-10 14:00] VITALS: BP 101/52; PULSE 63; RESP 14; TEMP 36.4; O2SAT 100
[2023-02-10 17:28] VITALS: BP 96/62
[2023-02-10] MEDS: AZITHROMYCIN 250 MG TABLET 500 MG PO (17:29)
[2023-02-10 19:34] LABS: Sodium 124 mmol/L (137-145)
[2023-02-10 20:54] VITALS: BP 105/50; PULSE 72; RESP 18; TEMP 36.3; O2SAT 94
[2023-02-10 21:35] LABS: Osmolality, Urine 555 mOsm/kg (50-1200)
[2023-02-11 05:26] VITALS: BP 100/52; PULSE 67; RESP 18; TEMP 36.7; O2SAT 96
[2023-02-11 07:42] LABS: Albumin Level 2.9 g/dL (3.5-5.1); Anion Gap 3 mmol/L (8-16); Blood Urea Nitrogen 26 mg/dL (9-20); Calcium 7.9 mg/dL (8.4-10.2); Carbon Dioxide 30 mmol/L (22-30); Chloride 92 mmol/L (98-107); Estimated CRCL calculation 49 ml/min; Estimated Glomerular Filt Rate > 60; Glucose 93 mg/dL (65-110); Phosphorus 3.1 mg/dL (2.5-4.5); Potassium 3.6 mmol/L (3.4-5.0); Sodium 125 mmol/L (137-145)
[2023-02-11 08:42] VITALS: BP 116/68
[2023-02-11] MEDS: GABAPENTIN 100 MG CAPSULE PO ×3 (08:43→17:19)
[2023-02-11] MEDS: TAMSULOSIN HCL 0.4 MG CAPSULE PO (08:43)
[2023-02-11] MEDS: metFORMIN HCL 500 MG TABLET PO (08:43)
[2023-02-11] MEDS: FUROSEMIDE 10 MG TABLET PO ×2 (08:43→17:19)
[2023-02-11] MEDS: SODIUM CHLORIDE 500 MG TABLET 1500 MG PO ×2 (08:43→17:19)
[2023-02-11] MEDS: APIXABAN 5 MG TABLET PO ×2 (08:43→20:32)
[2023-02-11 08:44] VITALS: PULSE 72
[2023-02-11] MEDS: carvediloL 12.5 MG TABLET PO (08:44)
[2023-02-11] MEDS: AMIODARONE HCL 200 MG TABLET PO (08:44)
[2023-02-11] MEDS: polyethylene glycoL 3350 17 GM POWD.PACK PO (08:44)
[2023-02-11] MEDS: SODIUM CHLORIDE 3% 255 ML 85 ML IV CONT (09:49)
--- NOTE | 2023-02-11 12:07 | PM.PNNEP ---
Progress Note: A&P Assessment and Plan (1) Hyponatremia: Code(s): E87.1 - Hypo-osmolality and hyponatremia Status: Acute Assessment and Plan: acuity versus chronicity not known assuming acute will try to obtain old records from PCP's office risk factors of low sodium: use of thiazide (metolazone) diuretics PPI use interstitial lung disease (as noted by imaging) history of BPH evaluation to date noted: Head CT and CXR results noted TSH okay cortisol slightly low - however, stim test okay SPEP/UPEP pending urine electrolytes are non-prerenal stopped metolazone on fluid restriction s/p 3% saline x 1 with minimal improvement -- repeat today on salt tab and low dose lasix follow repeat sodium levels (2) Altered mental status: Code(s): R41.82 - Altered mental status, unspecified Status: Acute Assessment and Plan: seems clinically better secondary to #1(?) follow mentation (3) Bronchitis: Code(s): J40 - Bronchitis, not specified as acute or chronic Status: Acute Assessment and Plan: presumed based on symptoms empirically on antibiotics (4) Weakness: Code(s): R53.1 - Weakness Status: Acute Assessment and Plan: also related to #1(?) follow symptoms PT/OT as tolerated (5) HTN (hypertension): Code(s): I10 - Essential (primary) hypertension Status: Chronic Assessment and Plan: reasonable control follow trend of hemodynamics Will continue to follow. Subjective Date/time seen: 02/11/23 12:07 Interval history: Follow up for acute hyponatremia (presumed). Sodium doing a bit better with current therapy/interventions/measures to date; no apparent distress noted; no issues/events overnight. Exam Narrative: General: elderly but WD/WN mal;ein NAD Heart: normal S1 and S2; no rub Lungs: clear to auscultation Abdomen: soft, nontender, nondistended, positive bowel sounds Extremities: no cyanosis or clubbing; no edema Skin: warm and intact Objective Data Vital Signs Vital Signs: Vital Signs Temp Pulse Resp BP Pulse Ox O2 Del Method 02/11/23 08:00 Room Air 02/11/23 08:44 72 02/11/23 08:44 72 02/11/23 08:42 116/68 02/11/23 05:26 98.0 F 67 18 100/52 L 96 02/10/23 20:54 97.4 F L 72 18 105/50 L 94 02/10/23 17:28 96/62 L 02/10/23 14:00 97.6 F 63 14 101/52 L 100 Intake/Output Intake/Output: Intake & Output 02/08/23 02/09/23 02/10/23 02/11/23 23:59 23:59 23:59 23:59 Intake Total 1850 880 970 240 Output Total 1200 1300 700 600 Balance 650 -420 270 -360 Meds/Results Medications: Active Medications Generic Name Dose Route Start Last Admin Trade Name Freq PRN Reason Stop Dose Admin Acetaminophen 650 mg 02/06/23 06:18 Acetaminophen 325 Mg Tablet PO Q4H PRN Mild Pain (1-3) or Fever Al Hydrox/Mg Hydrox/Simethicone 30 ml 02/06/23 06:18 Mag Hydrox/Al Hydrox/Simeth 30 Ml Udc PO QID PRN Dyspepsia Amiodarone HCl 200 mg 02/06/23 08:00 02/11/23 08:44 Amiodarone Hcl 200 Mg Tablet PO 200 mg DAILY@0800 DIEGO Administration Apixaban 5 mg 02/06/23 09:00 02/11/23 08:43 Apixaban 5 Mg Tablet PO 5 mg Q12HR DIEGO Administration Azithromycin 500 mg 02/09/23 17:00 02/10/23 17:29 Azithromycin 250 Mg Tablet PO 02/11/23 17:01 500 mg DAILY@1700 DIEGO Administration Carvedilol 12.5 mg 02/06/23 09:00 02/11/23 08:44 Carvedilol 12.5 Mg Tablet PO 12.5 mg Q12HR DIEGO Administration Furosemide 10 mg 02/09/23 17:00 02/11/23 08:43 Furosemide 10 Mg Tablet PO 10 mg BID DIEGO Administration Gabapentin 100 mg 02/06/23 09:00 02/11/23 12:03 Gabapentin 100 Mg Capsule PO 100 mg TID DIEGO Administration Losartan Potassium 25 mg 02/06/23 09:00 02/11/23 08:47 Losartan Potassium 25 Mg Tablet PO Not Given DAILY DIEGO Metfor
--- NOTE | 2023-02-11 12:07 | P.PNNP_ITS ---
Progress Note: A&P Assessment and Plan (1) Hyponatremia: Code(s): E87.1 - Hypo-osmolality and hyponatremia Status: Acute Assessment and Plan: * acuity versus chronicity not known * assuming acute * will try to obtain old records from PCP's office * risk factors of low sodium: * use of thiazide (metolazone) diuretics * PPI use * interstitial lung disease (as noted by imaging) * history of BPH * evaluation to date noted: * Head CT and CXR results noted * TSH okay * cortisol slightly low - however, stim test okay * SPEP/UPEP pending * urine electrolytes are non-prerenal * stopped metolazone * on fluid restriction * s/p 3% saline x 1 with minimal improvement -- repeat today * on salt tab and low dose lasix * follow repeat sodium levels (2) Altered mental status: Code(s): R41.82 - Altered mental status, unspecified Status: Acute Assessment and Plan: * seems clinically better * secondary to #1(?) * follow mentation (3) Bronchitis: Code(s): J40 - Bronchitis, not specified as acute or chronic Status: Acute Assessment and Plan: * presumed based on symptoms * empirically on antibiotics (4) Weakness: Code(s): R53.1 - Weakness Status: Acute Assessment and Plan: * also related to #1(?) * follow symptoms * PT/OT as tolerated (5) HTN (hypertension): Code(s): I10 - Essential (primary) hypertension Status: Chronic Assessment and Plan: * reasonable control * follow trend of hemodynamics Will continue to follow. Subjective Date/time seen: 02/11/23 12:07 Interval history: Follow up for acute hyponatremia (presumed). Sodium doing a bit better with current therapy/interventions/measures to date; no apparent distress noted; no issues/events overnight. Exam Narrative: General: elderly but WD/WN mal;ein NAD Heart: normal S1 and S2; no rub Lungs: clear to auscultation Abdomen: soft, nontender, nondistended, positive bowel sounds Extremities: no cyanosis or clubbing; no edema Skin: warm and intact Objective Data Vital Signs Vital Signs: Vital Signs Temp Pulse Resp BP Pulse Ox O2 Del Method 02/11/23 08:00 Room Air 02/11/23 08:44 72 02/11/23 08:44 72 02/11/23 08:42 116/68 02/11/23 05:26 98.0 F 67 18 100/52 L 96 02/10/23 20:54 97.4 F L 72 18 105/50 L 94 02/10/23 17:28 96/62 L 02/10/23 14:00 97.6 F 63 14 101/52 L 100 Intake/Output Intake/Output: Intake & Output 02/08/23 02/09/23 02/10/23 02/11/23 23:59 23:59 23:59 23:59 Intake Total 1850 880 970 240 Output Total 1200 1300 700 600 Balance 650 -420 270 -360 Meds/Results Medications: Active Medications Generic Name Dose Route Start Last Admin Trade Name Freq PRN Reason Stop Dose Admin Acetaminophen 650 mg 02/06/23 06:18 Acetaminophen 325 Mg Tablet PO Q4H PRN Mild Pain (1-3) or Fever Al Hydrox/Mg Hydrox/Simethicone 30 ml 02/06/23 06:18
--- NOTE | 2023-02-11 13:02 | PM.IMPN ---
Progress Note: A&P Assessment and Plan (1) Acute hyponatremia: Code(s): E87.1 - Hypo-osmolality and hyponatremia Status: Acute (2) Weakness: Code(s): R53.1 - Weakness Status: Acute (3) Dehydration: Code(s): E86.0 - Dehydration Status: Acute (4) Atrial fibrillation: Code(s): I48.91 - Unspecified atrial fibrillation Status: Acute (5) HTN (hypertension): Code(s): I10 - Essential (primary) hypertension Status: Chronic (6) Acute bacterial bronchitis: Code(s): J20.8 - Acute bronchitis due to other specified organisms; B96.89 - Other specified bacterial agents as the cause of diseases classified elsewhere Status: Acute (7) Vocal cord nodules: Code(s): J38.2 - Nodules of vocal cords Status: Acute (8) Laryngopharyngeal reflux: Code(s): K21.9 - Gastro-esophageal reflux disease without esophagitis Status: Acute (9) Confusion: Code(s): R41.0 - Disorientation, unspecified Status: Acute (10) Altered mental status: Code(s): R41.82 - Altered mental status, unspecified Status: Acute Plan 82-year-old male with past medical history of atrial fibrillation, hypertension presented to the ER with acute onset of confusion.?Workup was done which showed finding consistent with the possible UTI and bronchitis. Was also found to be hyponatremic. 1. Hyponatremia: Nephrology following Continue with fluid restriction Continue with salt tablets On hypertonic saline Recheck BMP in a.m. 2. altered mental status: Improved Likely secondary to hyponatremia, bronchitis 3. Bronchitis: On room air Continue with azithromycin to complete 3 day course 4. History of AFib her: Continue with amiodarone, Coreg, Eliquis 5. DVT prophylaxis: On Eliquis 6. Code status: Full 7. Disposition: Pending improvement Time Spent With Patient Time with patient: 15 - 25 minutes Subjective Date/time seen: 02/11/23 13:02 Interval history: no acute events overnight Review of Systems Review of Systems: All systems reviewed & are unremarkable except as noted in HPI and below Exam Narrative: PHYSICAL EXAMINATION: General physical exam: appears in no acute distress Head/eyes: Atraumatic, EOMI, PERRLA ENT:nasal passages clear Neck: Supple, full range of motion, trachea midline CVS: S1 + S2, regular rate and rhythm, no murmurs Respiratory: Bilaterally fair air entry in both lung doll, mild B/L crackles, symmetric chest expansion, no distress Abdomen: Soft, non-tender, bowel sounds +ve, no organomegaly Extremities: No clubbing, no cyanosis, no edema, no calf tenderness Musculoskeletal: Moves all, adequate range of motion, no muscle spasms Skin: Warm, dry, no jaundice, no cyanosis Objective Data Vital Signs Vital Signs: Vital Signs - 24 hr 02/10/23 14:00 02/10/23 17:28 02/10/23 20:54 Temperature 97.6 F 97.4 F L Pulse Rate 63 72 Respiratory Rate 14 18 Blood Pressure 101/52 L 96/62 L 105/50 L Pulse Oximetry 100 94 Oxygen Delivery 02/11/23 05:26 02/11/23 08:42 02/11/23 08:44 Temperature 98.0 F Pulse Rate 67 72 Respiratory Rate 18 Blood Pressure 100/52 L 116/68 Pulse Oximetry 96 Oxygen Delivery 02/11/23 08:44 02/11/23 08:00 Temperature Pulse Rate 72 Respiratory Rate Blood Pressure Pulse Oximetry Oxygen Delivery Room Air Intake/Output Intake/Output: Intake & Output 02/08/23 02/09/23 02/10/23 02/11/23 23:59 23:59 23:59 23:59 Intake Total 1850 880 970 240 Output Total 1200 1300 700 600 Balance 650 -420 270 -360 Meds/Results Medications: Active Medications Generic Name Dose Route Start Last Admin Trade Name Freq PRN Reason Stop Dose Admin Acetaminophen 650 mg 02/06/23 06:18 Acetaminophen 325 Mg Tablet PO Q4H PRN Mild Pain (1-3) or Fever Al Hydrox/Mg Hydrox/Simethicone 30 ml 02/06/23 06:18 Mag Hydrox/Al Hydrox/Simeth 30 Ml
[2023-02-11 13:58] VITALS: BP 110/82; PULSE 69; RESP 16; TEMP 36.8; O2SAT 95
[2023-02-11 14:23] LABS: Sodium 128 mmol/L (137-145)
[2023-02-11 15:27] LABS: Albumin 2.7 g/dL (3.8-4.8); Alpha 1 Globulin 0.3 g/dL (0.2-0.3); Alpha 2 Globulin 0.7 g/dL (0.5-0.9); Beta 1 Globulin 0.4 g/dL (0.4-0.6); Gamma Globulin 0.6 g/dL (0.8-1.7); Interpretation Consistent with
[2023-02-11] MEDS: AZITHROMYCIN 250 MG TABLET 500 MG PO (17:15)
[2023-02-11 20:00] VITALS: PULSE 70; RESP 17; O2SAT 95
[2023-02-11 20:40] VITALS: BP 100/50; PULSE 70; RESP 17; TEMP 36.9; O2SAT 95
[2023-02-11 20:43] LABS: Sodium 127 mmol/L (137-145)
[2023-02-11 21:08] LABS: Kappa\\Lambda Light Chains 1.27 (0.26-1.65); Lambda Light Chain 17.2 mg/L (5.7-26.3)
--- NOTE | 2023-02-11 21:29 | PC.NURSE ---
dr Zyaas notified about lab result: Na 127. no new orders
[2023-02-12 05:33] VITALS: BP 105/55; PULSE 66; RESP 18; TEMP 36.8; O2SAT 97
[2023-02-12 05:38] LABS: Basophils Absolute Auto 0.1 K/mm3 (0.0-0.1); Eosinophils Absolute Auto 0.4 K/mm3 (0-0.3); Eosinophils Percent Auto 3.8 % (0-4.4); Hematocrit 33.8 % (42.0-52.0); Hemoglobin 11.7 g/dL (14.0-18.0); Immature Granulocyte Absolute 0.27 K/mm3 (0.00-0.031); Immature Granulocyte Percent A 2.4 % (0-0.5); Lymphocytes Absolute Auto 1.66 K/mm3 (0.9-3.2); Lymphocytes Percent Auto 14.8 % (18.3-44.2); Mean Corpuscular HGB Conc 34.6 g/dl (32-36); Mean Corpuscular Hemoglobin 32.7 pg (26-34); Mean Corpuscular Volume 94.4 fl (80-100); Mean Platelet Volume 9.7 fl (7.4-10.4); Monocytes Absolute Auto 1.2 K/mm3 (0.1-0.6); Neutrophils Absolute Auto 7.5 K/mm3 (1.3-6.7); Platelet Count Result 265 k/mm3 (150-375); Red Blood Count 3.58 M/mm3 (4.6-6.20); Red Cell Distribution Width 15.3 % (11.5-14.5); White Blood Count 11.2 K/mm3 (4.5-10.0)
[2023-02-12 05:55] LABS: Anion Gap 3 mmol/L (8-16); Blood Urea Nitrogen 28 mg/dL (9-20); Calcium 7.9 mg/dL (8.4-10.2); Carbon Dioxide 29 mmol/L (22-30); Chloride 96 mmol/L (98-107); Estimated CRCL calculation 45 ml/min; Estimated Glomerular Filt Rate > 60; Glucose 90 mg/dL (65-110); Potassium 3.5 mmol/L (3.4-5.0); Sodium 128 mmol/L (137-145)
[2023-02-12 10:31] VITALS: BP 111/81; PULSE 77
[2023-02-12 10:32] VITALS: PULSE 77
[2023-02-12] MEDS: SODIUM CHLORIDE 500 MG TABLET 1500 MG PO (10:47)
[2023-02-12] MEDS: metFORMIN HCL 500 MG TABLET PO (10:47)
[2023-02-12] MEDS: FUROSEMIDE 10 MG TABLET PO (10:48)
[2023-02-12] MEDS: TAMSULOSIN HCL 0.4 MG CAPSULE PO (10:48)
[2023-02-12] MEDS: APIXABAN 5 MG TABLET PO (10:48)
[2023-02-12] MEDS: GABAPENTIN 100 MG CAPSULE PO ×2 (10:48→13:39)
[2023-02-12] MEDS: polyethylene glycoL 3350 17 GM POWD.PACK PO (10:49)
[2023-02-12 12:14] VITALS: PULSE 77
[2023-02-12] MEDS: AMIODARONE HCL 200 MG TABLET PO (12:14)
--- NOTE | 2023-02-12 12:32 | PM.DS ---
DS: Admitting Diagnosis Discharge Date 02/12/23 Admitting Diagnosis Acute Confusion Hyponatremia Acute Bronchitis H/O Afibb DS: Discharge Diagnosis Discharge Diagnosis (1) Bronchitis: Code(s): J40 - Bronchitis, not specified as acute or chronic Status: Acute (2) Hyponatremia: Code(s): E87.1 - Hypo-osmolality and hyponatremia Status: Acute (3) Altered mental status: Code(s): R41.82 - Altered mental status, unspecified Status: Acute (4) Acute hyponatremia: Code(s): E87.1 - Hypo-osmolality and hyponatremia Status: Acute (5) Atrial fibrillation: Code(s): I48.91 - Unspecified atrial fibrillation Status: Acute DS: Summary Hospital Course Reason for hospitalization: Acute Onset of Confusion Hyponatremia Bronchtitis Hospital Course: 82-year-old male with past medical history of atrial fibrillation, hypertension presented to the ER with acute onset of confusion.?Workup was done which showed finding consistent with the possible UTI and bronchitis.? Was also found to be hyponatremic. Nephrology was consulted, treated with fluid restriction, Hypertonic saline, Hyponatremia improved and so the confusion. Sodium levels were still not baseline, will follow up with Nephrology as outpatient, along with repeat blood work. Treated with 3 day course of azithromycin. Discharged home in stable condition. Status at Discharge Functional status at discharge: independent ambulation Overall status at discharge: patient is back to baseline Time Spent with Patient Time attestation: Total time spent providing and/or coordinating discharge services: Time spent: Greater than 30 minutes Exam Narrative: PHYSICAL EXAMINATION: General physical exam: appears in no acute distress Head/eyes: Atraumatic, EOMI, PERRLA ENT:nasal passages clear Neck: Supple, full range of motion, trachea midline CVS: S1 + S2, regular rate and rhythm, no murmurs Respiratory: Bilaterally fair air entry in both lung doll, mild B/L crackles, symmetric chest expansion, no distress Abdomen: Soft, non-tender, bowel sounds +ve, no organomegaly Extremities: No clubbing, no cyanosis, no edema, no calf tenderness Musculoskeletal: Moves all, adequate range of motion, no muscle spasms Skin: Warm, dry, no jaundice, no cyanosis DS: Data Data Completed and Pending Labs on day of discharge: Labs from last 24 hours 02/12/23 02/11/23 02/11/23 05:15 20:30 13:55 WBC 11.2 H RBC 3.58 L Hgb 11.7 L Hct 33.8 L MCV 94.4 MCH 32.7 MCHC 34.6 RDW 15.3 H Plt Count 265 MPV 9.7 Immature Gran % (Auto) 2.4 H Neut % (Auto) 67.0 Lymph % (Auto) 14.8 L [place] % (Auto) 11.0 H Eos % (Auto) 3.8 Baso % (Auto) 1.0 Lymph # (Auto) 1.66 [place] # (Auto) 1.2 H Eos # (Auto) 0.4 H Baso # (Auto) 0.1 Abs Immat Gran (auto) 0.27 H Absolute Neuts (auto) 7.5 H Absolute Nucleated RBC 0.0 Nucleated RBC % 0.0 Sodium 128 L 127 L 128 L Potassium 3.5 Chloride 96 L Carbon Dioxide 29 Anion Gap 3 L BUN 28 H Creatinine 1.10 Estim Creat Clear Calc 45 Estimated GFR > 60 Glucose 90 Calcium 7.9 L Total Protein Albumin Nvszz-5-Hlsuvimps Rtlsw-0-Bpewgslbe Mmys-3-Uljriswr Imjd-1-Panhuovj Gamma Globulins Abnorm Protein Band 1 Abnorm Protein Band 3 PEP Interpretation [place]/Lambda Ratio Free [place] Light Chains Free Lambda Light Chain 02/08/23 05:41 WBC RBC Hgb Hct MCV MCH MCHC RDW Plt Count MPV Immature Gran % (Auto) Neut % (Auto) Lymph % (Auto) [place] % (Auto) Eos % (Auto) Baso % (Auto) Lymph # (Auto) [place] # (Auto) Eos # (Auto) Baso # (Auto) Abs Immat Gran (auto) Absolute Neuts (auto) Absolute Nucleated RBC Nucleated RBC % Sodium Potassium Chloride Carbon Dioxide Anion Gap BUN Creatinine Estim Creat Clear Calc Estimated GFR Glucose Calcium
[2023-02-13 07:28] LABS: Creatinine, Random Urine 60 mg/dL (20-320); Total Protein/Creatinine Ratio 250 mg/g creat (25-148)
== END 2023-02-12 14:20 | disposition home health service (06) | DRG 641 ==
LOC: ANHED 16:02 → ANH2MED 18:32
PROVIDERS: Chiropractor; Family Medicine; Internal Medicine Nephrology; Admitting Provider Internal Medicine; Emergency Provider Physician Assistant; PCP Internal Medicine; Visit Provider Internal Medicine
DX: E87.1 Hypo-osmolality and hyponatremia (principal); N39.0 Urinary tract infection, site not specified; J20.8 Acute bronchitis due to other specified organisms; E86.0 Dehydration; I48.91 Unspecified atrial fibrillation; I10 Essential (primary) hypertension; J38.2 Nodules of vocal cords; K21.9 Gastro-esophageal reflux disease without esophagitis; K59.09 Other constipation; M19.90 Unspecified osteoarthritis, unspecified site; N40.0 Benign prostatic hyperplasia without lower urinary tract symptoms; R41.0 Disorientation, unspecified; Z20.822 Contact with and (suspected) exposure to COVID-19; Z79.01 Long term (current) use of anticoagulants
CPT/HCPCS: 36415; 70450; 71046; 74177; 80048; 80053; 80069; 81001; 81050; 82533; 82570; 83735; 83883; 83930; 83935; 84100; 84155; 84156; 84165; 84166; 84295; 84300; 84443; 84540; 85025; 87086; 87636; 93005; 96361; 96365; 97110; 97116; 97162; 97530; 97535; 99285; A9270; G0378; J0696; J0834; J2405; J7030; J7131; Q9967